=== PATIENT | male | born 1945 | race Caucasian/White ===

== ENCOUNTER 2019-01-07 13:58 | Inpatient (IN) | payer OTHER ==
[2019-01-07] MEDS ORDERED: RSI MEDICATION KIT IV ONE (14:31)
[2019-01-07] MEDS ORDERED: PROPOFOL 1,000 MG/100 ML VIAL IV ONE (14:31)
[2019-01-07] MEDS ORDERED: NA CHLORIDE 0.9% 1,000 ML ONE ×3 (14:32→21:11)
[2019-01-07 14:34] LABS: Protime INR 1.31
[2019-01-07] MEDS ORDERED: D50W 25 GM/50 ML SYRINGE IV ONE (14:35)
[2019-01-07 14:44] LABS: Albumin 2.8 g/dL (3.4-5.0); Bilirubin Direct 0.1 mg/dL (0-0.2); Bilirubin Total 0.3 mg/dL (0.2-1.0); Potassium 4.8 mmol/L (3.5-5.1); Protein, Total 7.1 g/dL (6.4-8.2); Troponin (Emerg Dept Use Only) 0.25 ng/mL (0.0-0.045)
[2019-01-07 14:52] LABS: Absolute Lymphocytes (CBC) 2.1 K/uL (0.7-4.9); Basophils % 0.7 % (0-1.3); Hematocrit 28.9 % (39.6-49.0); Lymphocytes % 11.2 % (15.3-44.8); MPV 8.2 fL (7.6-11.3); RBC Red Blood Cell Count 3.39 M/uL (4.33-5.43)
[2019-01-07 15:03] LABS: Arterial Blood Carboxyhemoglob 1.3 % (0-1.5); Blood Gas Oxyhemoglobin 97.5 % (94-97); Blood O2 Saturation 99.7 % (92-98.5)
[2019-01-07 15:08] LABS: Urine Blood NEGATIVE (NEG); Urine Glucose NEGATIVE (NEG); Urine Protein 2+ (NEG)
[2019-01-07 15:19] LABS: Barbiturates NEGATIVE (NEGATIVE); Benzodiazepines NEGATIVE (NEGATIVE); Cocaine NEGATIVE (NEGATIVE); METHAMPHETAM NEGATIVE (NEGATIVE); Methadone NEGATIVE (NEGATIVE); Opiates NEGATIVE (NEGATIVE); Phencyclidine NEGATIVE (NEGATIVE); THC Cannibis NEGATIVE (NEGATIVE)
--- NOTE | 2019-01-07 15:37 | RAD REPORT ---
EXAM DESCRIPTION: CT - Head Brain Wo Cont - 01/07/2019 3:28 pm CLINICAL HISTORY: Alteration of awareness/confusion COMPARISON: None TECHNIQUE: Computed axial tomography of the head was obtained. IV contrast was not requested. All CT scans are performed using dose optimization technique as appropriate and may include automated exposure control or mA/KV adjustment according to patient size. FINDINGS: An intracranial bleed is not seen . The ventricles are normal in caliber. No extra-axial fluid collection is noted. Small low-density area within the anterior horn right internal capsule has a nonspecific appearance. It may represent an old lacunar infarct. . Fluid within the sinuses/ mastoids is not seen. IMPRESSION: No acute intracranial abnormality is seen. If patient's symptoms persist MRI of the bra in would be recommended.
--- NOTE | 2019-01-07 15:55 | RAD REPORT ---
EXAM DESCRIPTION: CT - Chest Abd Pelvis Wo Con - 01/07/2019 3:28 pm CLINICAL HISTORY: sob COMPARISON: none TECHNIQUE: Computed axial tomography of the chest, abdomen and pelvis was obtained. Oral contrast wa s given. IV contrast was not requested. All CT scans are performed using dose optimization technique as appropriate and may include automated exposure control or mA/KV adjustment according to patient size. FINDINGS: The evaluation of mediastinum, genie, vessels and solid organs is limited secondary to the lack of IV contrast administration Small to moderate left pleural effusion with left lower lobe opacity. The mild right lower lobe atelectasis. Probable small to moderate pericardial effusion with increased density The liver, spleen, pancreas, and adrenals appear grossly normal. Bilateral renal cysts. Largest exten ds off of the right kidney measuring 6.4 centimeters Increased density within the gallbladder A Kaur catheter is present within the bladder. Large amount stool within the colon. Prostate gland moderately enlarged. Diffuse edema within the subcutaneous tissues. Small umbilical hernia Vascular calcifications. Tracheal tube in place. Nasogastric tube within the stomach. The tip abuts the anterior wall Spondylosis involves lumbar spine resulting in spinal stenosis IMPRESSION: Left lower lobe opacity may represent atelectasis, pneumonia or a combination of mass an d atelectasis/ pneumonia. Probable small to moderate pericardial effusion with increased density. Ultrasound of the heart is re commended Increased density within the gallbladder may represent stones or milk of calcium bile. Large amount stool within the colon
[2019-01-07] MEDS ORDERED: CEFTRIAXONE/SWI 1gm 1 GM/10 ML SYR ONE ×2 (16:38→16:59)
[2019-01-07] MEDS ORDERED: ASPIRIN 600 MG/SUPP PR ONE (16:38)
[2019-01-07] MEDS ORDERED: ENOXAPARIN 80 MG/0.8 ML SQ ONE (16:38)
[2019-01-07 16:41] LABS: Urine Bacteria >50 /HPF (NONE SEEN); Urine Culture Reflex Order REFLEXED; Urine RBC <5 /HPF (NONE SEEN)
--- NOTE | 2019-01-07 16:45 | RAD REPORT ---
EXAM DESCRIPTION: [place] Single View01/07/2019 2:57 pm CLINICAL HISTORY: sob COMPARISON: none FINDINGS: Pacemaker leads in place Small to moderate left pleural effusion with left basilar opacity. Mild right basilar atelectasis. The heart is enlarged
--- NOTE | 2019-01-07 17:15 | ER ---
Nurse's Notes [facility] Name: David Bernard Age: 73 yrs Sex: Male : 1945 Arrival Date: 01/07/2019 Time: 13:59 Bed 4 Private MD: Diagnosis: acute AMS;NSTEMI;acute Left lower lobe pneumonia with effusion;pericadial effusion;leukocytosis;renal insufficiency Presentation: 01/07 13:59 Presenting complaint: EMS states: From [facility], staff reports that pt was at ph baseline at 0800 this morning, began having SOB after that time, at approx 1100 began having tremors, AMS, and Spo2 decreased to 84% on 4L NC, placed on NRB mask by EMS and improved to > 95%, BP 124/77, BGL 77, pt normally A\T\O x 3, breath sounds diminished bilaterally. Transition of care: patient was not received from another setting of care. Onset of symptoms was January 07, 2019. Risk Assessment: Do you want to hurt yourself or someone else? Patient reports no desire to harm self or others. Initial Sepsis Screen: Does the patient meet any 2 criteria? Altered Mental Status. Does the patient have a suspected source of infection? Yes: Productive cough/pneumonia. Care prior to arrival: None. 13:59 Method Of Arrival: EMS: [facility] ph 13:59 Acuity: FANTA 2 ph 15:10 Acuity: FANTA 1 ph Triage Assessment: 19:46 Respiratory: ak1 Historical: - Allergies: 14:08 Doxycycline; ph 14:08 Zofran; ph - Home Meds: 19:06 levothyroxine 150 mcg tab 1 tab once daily [Active]; temazepam 15 mg Oral cap 1 cap ph once daily [Active]; atorvastatin 80 mg oral tab 1 tab once daily [Active]; Rozerem 8 mg oral tab 1 tab once daily [Active]; trazodone 50 mg Oral tab 1 tab nightly [Active]; Insulin: Humulin 70/30 Sub-Q [Active]; pregabalin 300 mg Oral 2 times per day [Active]; metoprolol succinate 25 mg oral Tb24 0.5 tab [Active]; Victoza 2-Skyler 0.6 mg/0.1 mL (18 mg/3 mL) subcutaneous pnij 1.8 mg [Active]; pantoprazole 40 mg oral TbEC 1 tab 2 times per day [Active]; Miralax 17 gram/dose Oral powd once daily [Active]; aspirin 81 mg Oral chew 1 tab once daily [Active]; acarbose 25 mg Oral tab 1 tab 3 times per day [Active]; bumetanide 2 mg Oral tab 1 tab 2 times per day [Active]; tamsulosin 0.4 mg oral cp24 1 cap once daily [Active]; fluticasone 50 mcg/actuation nasal spsn 2 sprays once daily [Active]; sennosides 8.6 mg oral tab 1 tabs once daily [Active]; Cholestyramine Light 4 gram oral pwpk 1 packet 3 times per day [Active]; metformin 500 mg Oral tab 2 tabs 2 times per day [Active]; Nitrostat 0.4 mg SL subl 1 tab every 5 minutes [Active]; tramadol 50 mg Oral tab 2 tabs every 4-6 hours [Active]; ipratropium-albuterol 0.5 mg-3 mg(2.5 mg base)/3 mL Inhl nebu [Active]; Albuterol Inhl [Active]; acetaminophen 325 mg Oral tab 2 tabs every 6 hours [Active]; - PMHx: 14:08 Myocardial infarction; ph 14:13 CAD; Gout; Hypertension; Hyperlipidemia; neuropathy; Lyme Disease; Arthritis; ph Cataracts; Diabetes - NIDDM; Hypothyroidism; GI Bleed; insomnia; sepsis; - Immunization history:: Adult Immunizations unknown. - Social history:: Smoking status: unknown. - Ebola Screening: : No symptoms or risks identified at this time. - Family history:: not pertinent. - Hospitalizations: : No recent hospitalization is reported. Screenin:42 Abuse screen: Denies threats or abuse. Denies injuries from another. Nutritional ph screening: No deficits noted. Tuberculosis screening: No symptoms or risk factors identified. Fall Risk None identified. Assessment: 14:10 General: Appears in no apparent distress. uncomfortable, Behavior is cooperative, ph drowsy, listless, quiet. Pain: Denies pain. Neuro: Level of Consciousness is obeys commands, lethargic, listless, Oriented to person, place. Neuro: intermittent tremors noted to lakeisha arms. Cardiovascular: Capillary refill is sluggish in bilateral fingers Patient's skin is warm and dry. Rhythm is irregular. Respiratory: Airway is patent Respiratory effort is gasping, shallow, Respiratory pattern is regular, Breath sounds are diminished bilaterally. Derm: Skin is fragile, is thin, Skin is pale. Musculoskeletal: Circulation, motion, and sensation intact. 14:35 Reassessment: LOC noted to have decreased, GCS of 6 w/ no response to verbal or tactile ph stimuli, shallow and tachypneic respirations, ERP at bedside, preparing to intubate pt. 15:56 Reassessment: Patient appears in no apparent distress at this time. Patient and/or ph family updated on plan of care and expected duration. Pain level reassessed. Pt remains sedated and intubated, VSS at this time, awaiting CT results. 16:30 Reassessment: Patient appears in no apparent distress at this time. Patient and/or ph family updated on plan of care and expected duration. Pain level reassessed. BP remains low, see vitals tab, ERP aware of BP and elevated lactate, no fluid bolus ordered at this time. 17:16 Reassessment: Patient appears in no apparent distress at this time. Pt remains ph intubated/sedated, awaiting bed assignment. 18:16 Reassessment: Patient appears in no apparent distress at this time. No changes from ph previously documented assessment. 19:28 General: Appears in no apparent distress. comfortable, Behavior is calm. Neuro: pt is ak1 intubated and sedated at this time. . Cardiovascular: Patient's skin is warm and dry. Rhythm is with capture. Respiratory: Airway is patent via oral intubation Respiratory effort is assisted via vent Breath sounds are diminished in left lower lobe Breath sounds with rhonchi in right upper lobe, left upper lobe, right middle lobe and right lower lobe. GI: Abdomen is non-distended, Bowel sounds present X 4 quads. : Kaur in place. EENT: Nares NG tube to left nare. Derm: Skin is fragile, is thin, Skin is dry, Skin is pale, Skin temperature is warm. Musculoskeletal: Capillary refill < 3 seconds, in bilateral fingers. pt currently in wrist restraints from previous shift. . 21:27 Reassessment: esophageal temp probe placed to right nares. propofol increased to ak1 8mcg/min for pt sedation. Vital Signs: 14:05 BP 210 / 112; Pulse 84; Resp 20; Temp 98.5; Pulse Ox 79% on R/A; Weight 83.91 kg; ph 14:25 BP 150 / 54; Pulse 96; Resp 22; Pulse Ox 97% on 100% Non-rebreather mask; ph 14:45 BP 108 / 86; Pulse 111; Resp 16; Pulse Ox 100% on 15 lpm ETT ambu; ph 15:00 BP 108 / 63; Pulse 116; Resp 20; Pulse Ox 91% on 15 lpm ETT ambu; ph 15:15 BP 107 / 60; Pulse 110; Resp 20; Pulse Ox 95% on 15 lpm ETT ambu; ph 15:30 BP 104 / 60; Pulse 107; Resp 16; Pulse Ox 100% on 55% FiO2 ETT vent; ph 15:50 BP 86 / 66; Pulse 87; Resp 16; Pulse Ox 98% on 55% FiO2 ETT vent; ph 16:06 BP 82 / 60; Pulse 89; Resp 16; Pulse Ox 100% on ETT vent; ph 16:20 BP 90 / 59; Pulse 107; Resp 18; Pulse Ox 99% on ETT vent; ph 16:45 BP 94 / 64; Pulse 90; Resp 18; Pulse Ox 95% on ETT vent; ph 17:00 BP 79 / 66; Pulse 85; Resp 18; Pulse Ox 98% on ETT vent; ph 17:15 BP 89 / 65; Pulse 97; Resp 18; Pulse Ox 99% on ETT vent; ph 17:30 BP 99 / 71; Pulse 99; Resp 18; Pulse Ox 100% on ETT vent; ph 17:45 BP 85 / 64; Pulse 96; Resp 16; Pulse Ox 100% on ETT vent; ph 18:00 BP 105 / 70; Pulse 110; Resp 18; Pulse Ox 100% on ETT vent; ph 18:16 BP 100 / 87; Pulse 101; Resp 18; Pulse Ox 99% on ETT vent; ph 19:00 BP 82 / 68; Pulse 80; Resp 18; Pulse Ox 100% on 55% FiO2 ETT vent; ak1 19:30 BP 111 / 60; Pulse 98; Resp 18; Pulse Ox 97% on 55% FiO2 ETT vent; ak1 20:05 BP 92 / 67; Pulse 88; Resp 19; Temp 100.2(A); Pulse Ox 91% on 60% FiO2 ETT vent; ak1 21:20 BP 102 / 77; Pulse 82; Resp 18; Temp 100.2(esophageal probe); Pulse Ox 98% on 60% FiO2 ak1 ETT vent; 22:00 BP 95 / 62; Pulse 95; Resp 16; Temp 100.1(esophagel probe); Pulse Ox 98% on 60% FiO2 ak1 ETT vent; 19:00 Charge nurse and provider notifed of vitals signs, central line ordered and being ak1 placed by provider. 20:05 current vent settings of : 550 TV, AC 18, FiO2 60%, PEEP 5 ak1 22:00 99.8 rectal temp. ak1 Simin Coma Score: 14:05 Eye Response: to voice(3). Verbal Response: oriented(5). Motor Response: withdraws from ph pain(4). Total: 12. 14:38 Eye Response: none(1). Verbal Response: none(1). Motor Response: withdraws from ph pain(4). Total: 6. ED Course: 13:59 Patient arrived in ED. ph 14:02 Andrea Vivas MD is Attending Physician. wa 14:04 Triage completed. ph 14:14 Arm band placed on Patient placed in an exam room, on a stretcher, on oxygen, on ph groundwater monitoring technician, on pulse oximetry. 14:22 EKG done, by ED staff, reviewed by Andrea Vivas MD. Missed attempt(s): 20 gauge in mh5 left antecubital area. 14:26 Lesli Bianchi, RN is Primary Nurse. ph 14:30 Inserted saline lock: 22 gauge in right hand, using aseptic technique. ph 14:35 Patient has correct armband on for positive identification. Placed in gown. Bed in low ph position. Side rails up X2. monitoring and evaluation advisor on. Pulse ox on. NIBP on. Door closed. Noise minimized. Warm blanket given. 14:43 Assisted provider with intubation using 7.5 mm ETT via oral route. ET tube secured at ph 22cm at the teeth. Set up intubation tray. Intubated by Andrea Vivas MD Placement verified by CO2 detector w/ + color change, auscultating bilateral breath sounds, Patient tolerated well. 14:45 Inserted saline lock: 20 gauge in left EJ, using aseptic technique. inserted by Dr ramsey Vivas. 14:50 Kaur cath inserted, using sterile technique, 16 Fr., by me, balloon inflated, urine iw specimen collected. returned clear yellow urine. 14:50 NGT: inserted 16 Fr. via left nare. verified placement of air over stomach, verified ph return of gastric contents, to intermittent suction. Returned gastric contents. Patient tolerated well. 15:01 Chest Single View XRAY In Process Unspecified. EDMS 15:29 CT Head Brain wo Cont In Process Unspecified. EDMS 15:29 CT Chest Abdomen Pelvis W/O Contrast In Process Unspecified. EDMS 16:50 Chest Single View XRAY In Process Unspecified. EDMS 17:12 Breanna Hong MD is Hospitalizing Provider. wa 19:46 Patient admitted, IV remains in place. ak1 20:01 Assisted provider with central line placement. Set up central line tray. Triple lumen la1 line placed in right femoral. Line placed by Andrea Vivas MD Placement verified by blood return, Dressed with Tegaderm, Patient tolerated well. Time-out/Briefing performed prior to start of procedure? Yes. Was handwashing/sanitizing done immediately prior to procedure? Yes. Was patient positioned to in a way to prevent air embolism? Yes. Was procedure site sterilized? Yes, with chlorhexidine. Was the site allowed to dry? Yes. Was local anesthetic and/or sedation utilized? Yes. During the procedure, did the Practitioner(s) maintain a sterile field? Yes. Were unused ports clamped during insertion? Yes. Was a 2nd qualified MD obtained after 3 unsuccessful insertion attempts? No. Was blood aspirated from each lumen? Yes. After the procedure, did the Practitioner(s) clean the site and apply a sterile dressing? Yes. Administered Medications: 14:40 Drug: Etomidate 20 mg Route: IVP; Site: right hand; ph 16:06 Follow up: Response: No adverse reaction; Patient is sedated; RASS: Deep sedation (-4) ph 14:50 Drug: Propofol 5 mcg/kg/min Route: IV; Rate: calculated rate; Site: left jugular; ph 19:08 Follow up: Response: No adverse reaction; IV Status: Infusion continued upon admission ph 22:02 Follow up: IV Status: Infusion continued upon admission ak1 15:09 Drug: D50W 50 ml Route: IVP; Site: right hand; ph 16:06 Follow up: Response: No adverse reaction ph 16:07 Drug: NS 0.9% 1000 ml Route: IV; Rate: 60 ml/hr; Site: left jugular; ph 19:08 Follow up: Response: No adverse reaction; IV Status: Infusion continued upon admission ph 17:14 Drug: Aspirin Suppository 300 mg Route: NJ; ph 19:07 Follow up: Response: No adverse reaction ph 17:14 Drug: Lovenox 80 mg Route: Sub-Q; Site: right lower abdomen; ph 19:07 Follow up: Response: No adverse reaction ph 17:14 Drug: Rocephin - (cefTRIAXone) 2 grams Route: IVPB; Infused Over: 30 mins; Site: right ph hand; 19:07 Follow up: Response: No adverse reaction; IV Status: Completed infusion ph 18:04 Drug: Zithromax 500 mg Route: IVPB; Infused Over: 1 hrs; Site: right antecubital; ph 19:07 Follow up: Response: No adverse reaction; IV Status: Completed infusion ph 18:40 Drug: fentaNYL (PF) 50 mcg Route: IVP; Site: left jugular; ph 19:08 Follow up: Response: No adverse reaction ph 18:40 Drug: NS 0.9% 500 ml Route: IV; Rate: bolus; Site: left jugular; ph 19:08 Follow up: IV Status: Completed infusion; IV Intake: 500ml lp1 20:05 Drug: NS 0.9% 1500 ml Route: IV; Rate: bolus; Site: right femoral; ak1 21:30 Follow up: IV Status: Completed infusion; IV Intake: 1500ml ak1 20:16 Drug: Tylenol Suppository 650 mg Route: NJ; ak1 21:31 Follow up: Response: No adverse reaction ak1 21:31 Drug: NS 0.9% 1000 ml Route: IV; Rate: 100 ml/hr; Site: right femoral; ak1 21:32 Follow up: IV Status: Infusion continued upon admission ak1 Point of Care Testing: Blood Glucose: 14:27 Blood Glucose: 73 mg/dL; ph 16:20 Blood Glucose: 102 mg/dL; ph Ranges: Intake: 19:08 IV: 500ml; Total: 500ml. lp1 21:30 IV: 1500ml; Total: 2000ml. ak1 Output: 22:21 Urine: 250ml (Kaur); Total: 250ml. lp1 Outcome: 17:13 Decision to Hospitalize by Provider. wa 19:46 critical ak1 19:46 Instructed on the need for admit. 22:23 Patient left the ED. lp1 22:51 Admitted to ICU accompanied by nurse, via stretcher, room ICU-1, with oxygen, on ak1 monitor, with chart, Report called to Bedside report given to Elana GARCIA Signatures: Dispatcher [employer] EDMS Nay Garsia RN RN Linda Sands RN RN 1 Toñito Gandara RN RN la1 Krenek, Amber, RN RN ak1 Lesli Bianchi RN RN Dmitry, [facility] Andrea Vivas MD MD wa Corrections: (The following items were deleted from the chart) 19:19 16:30 Reassessment: Patient appears in no apparent distress at this time. Patient ph and/or family updated on plan of care and expected duration. Pain level reassessed. BP remains low, see vitals tab, ERP aware of BP, no fluid bolus ordered at this time ph 22:00 21:27 Reassessment: esophageal temp probe placed to right nares. propofol increased to ak1 8mg/min for pt sedation. ak1
--- NOTE | 2019-01-07 17:16 | EDPHYS ---
Physician Documentation [facility] Name: David Bernard Age: 73 yrs Sex: Male : 1945 Arrival Date: 01/07/2019 Time: 13:59 Bed 4 Private MD: ED Physician Andrea Vivas HPI: 01/07 16:21 This 73 yrs old Male presents to ER via EMS with complaints of Respiratory wa Distress. 16:21 The patient presents with decreased mental status, trouble breathing. . Onset: The wa symptoms/episode began/occurred just prior to arrival. Possible causes: unknown. Associated signs and symptoms: Pertinent positives: decreased oxygen saturation. Current symptoms: In the emergency department the patient's symptoms have worsened, markedly. Patient's baseline: Neuro: alert and fully oriented, Speech: normal. It is unknown whether or not the patient has had similar symptoms in the past. The patient has not recently seen a physician. per NH, pt had a flu shot around 9 AM. became less responsive and confused about an hour later. per EMS, noted decreased sats. pt unable to answer MD questions at arrival. BG 71. . Historical: - Allergies: 14:08 Doxycycline; ph 14:08 Zofran; ph - Home Meds: 19:06 levothyroxine 150 mcg tab 1 tab once daily [Active]; temazepam 15 mg Oral cap 1 cap ph once daily [Active]; atorvastatin 80 mg oral tab 1 tab once daily [Active]; Rozerem 8 mg oral tab 1 tab once daily [Active]; trazodone 50 mg Oral tab 1 tab nightly [Active]; Insulin: Humulin 70/30 Sub-Q [Active]; pregabalin 300 mg Oral 2 times per day [Active]; metoprolol succinate 25 mg oral Tb24 0.5 tab [Active]; Victoza 2-Skyler 0.6 mg/0.1 mL (18 mg/3 mL) subcutaneous pnij 1.8 mg [Active]; pantoprazole 40 mg oral TbEC 1 tab 2 times per day [Active]; Miralax 17 gram/dose Oral powd once daily [Active]; aspirin 81 mg Oral chew 1 tab once daily [Active]; acarbose 25 mg Oral tab 1 tab 3 times per day [Active]; bumetanide 2 mg Oral tab 1 tab 2 times per day [Active]; tamsulosin 0.4 mg oral cp24 1 cap once daily [Active]; fluticasone 50 mcg/actuation nasal spsn 2 sprays once daily [Active]; sennosides 8.6 mg oral tab 1 tabs once daily [Active]; Cholestyramine Light 4 gram oral pwpk 1 packet 3 times per day [Active]; metformin 500 mg Oral tab 2 tabs 2 times per day [Active]; Nitrostat 0.4 mg SL subl 1 tab every 5 minutes [Active]; tramadol 50 mg Oral tab 2 tabs every 4-6 hours [Active]; ipratropium-albuterol 0.5 mg-3 mg(2.5 mg base)/3 mL Inhl nebu [Active]; Albuterol Inhl [Active]; acetaminophen 325 mg Oral tab 2 tabs every 6 hours [Active]; - PMHx: 14:08 Myocardial infarction; ph 14:13 CAD; Gout; Hypertension; Hyperlipidemia; neuropathy; Lyme Disease; Arthritis; ph Cataracts; Diabetes - NIDDM; Hypothyroidism; GI Bleed; insomnia; sepsis; - Immunization history:: Adult Immunizations unknown. - Social history:: Smoking status: unknown. - Ebola Screening: : No symptoms or risks identified at this time. - Family history:: not pertinent. - Hospitalizations: : No recent hospitalization is reported. ROS: 16:24 Constitutional: Negative for fever, chills, and weight loss, Eyes: Negative for injury, wa pain, redness, and discharge, ENT: Negative for injury, pain, and discharge, Neck: Negative for injury, pain, and swelling, Abdomen/GI: Negative for abdominal pain, nausea, vomiting, diarrhea, and constipation, Back: Negative for injury and pain, : Negative for injury, bleeding, discharge, and swelling, MS/Extremity: Negative for injury and deformity, Skin: Negative for injury, rash, and discoloration. 16:24 Cardiovascular: Negative for chest pain, edema. 16:24 Respiratory: Positive for shortness of breath. 16:24 Neuro: Positive for altered mental status. Exam: 16:25 Head/Face: Normocephalic, atraumatic. Eyes: Pupils equal round and reactive to light, wa extra-ocular motions intact. Lids and lashes normal. Conjunctiva and sclera are non-icteric and not injected. Cornea within normal limits. Periorbital areas with no swelling, redness, or edema. ENT: Nares patent. No nasal discharge, no septal abnormalities noted. Tympanic membranes are normal and external auditory canals are clear. Oropharynx with no redness, swelling, or masses, exudates, or evidence of obstruction, uvula midline. Mucous membranes moist. Neck: Trachea midline, no thyromegaly or masses palpated, and no cervical lymphadenopathy. Supple, full range of motion without nuchal rigidity, or vertebral point tenderness. No Meningismus. Respiratory: Lungs have equal breath sounds bilaterally, clear to auscultation and percussion. No rales, rhonchi or wheezes noted. No increased work of breathing, no retractions or nasal flaring. Abdomen/GI: Soft, non-tender, with normal bowel sounds. No distension or tympany. No guarding or rebound. No evidence of tenderness throughout. Back: No spinal tenderness. No costovertebral tenderness. Full range of motion. Skin: Warm, dry with normal turgor. Normal color with no rashes, no lesions, and no evidence of cellulitis. MS/ Extremity: Pulses equal, no cyanosis. Neurovascular intact. Full, normal range of motion. 16:25 Constitutional: The patient appears no obvious distress. somnolent. 16:25 Neuro: Orientation: mumbles ansers to MD initially, however worsened rapidly to decreased responsiveness, Cranial nerves: unable to test, Motor: moves all 4 extremities. Vital Signs: 14:05 BP 210 / 112; Pulse 84; Resp 20; Temp 98.5; Pulse Ox 79% on R/A; Weight 83.91 kg; ph 14:25 BP 150 / 54; Pulse 96; Resp 22; Pulse Ox 97% on 100% Non-rebreather mask; ph 14:45 BP 108 / 86; Pulse 111; Resp 16; Pulse Ox 100% on 15 lpm ETT ambu; ph 15:00 BP 108 / 63; Pulse 116; Resp 20; Pulse Ox 91% on 15 lpm ETT ambu; ph 15:15 BP 107 / 60; Pulse 110; Resp 20; Pulse Ox 95% on 15 lpm ETT ambu; ph 15:30 BP 104 / 60; Pulse 107; Resp 16; Pulse Ox 100% on 55% FiO2 ETT vent; ph 15:50 BP 86 / 66; Pulse 87; Resp 16; Pulse Ox 98% on 55% FiO2 ETT vent; ph 16:06 BP 82 / 60; Pulse 89; Resp 16; Pulse Ox 100% on ETT vent; ph 16:20 BP 90 / 59; Pulse 107; Resp 18; Pulse Ox 99% on ETT vent; ph 16:45 BP 94 / 64; Pulse 90; Resp 18; Pulse Ox 95% on ETT vent; ph 17:00 BP 79 / 66; Pulse 85; Resp 18; Pulse Ox 98% on ETT vent; ph 17:15 BP 89 / 65; Pulse 97; Resp 18; Pulse Ox 99% on ETT vent; ph 17:30 BP 99 / 71; Pulse 99; Resp 18; Pulse Ox 100% on ETT vent; ph 17:45 BP 85 / 64; Pulse 96; Resp 16; Pulse Ox 100% on ETT vent; ph 18:00 BP 105 / 70; Pulse 110; Resp 18; Pulse Ox 100% on ETT vent; ph 18:16 BP 100 / 87; Pulse 101; Resp 18; Pulse Ox 99% on ETT vent; ph 19:00 BP 82 / 68; Pulse 80; Resp 18; Pulse Ox 100% on 55% FiO2 ETT vent; ak1 19:30 BP 111 / 60; Pulse 98; Resp 18; Pulse Ox 97% on 55% FiO2 ETT vent; ak1 20:05 BP 92 / 67; Pulse 88; Resp 19; Temp 100.2(A); Pulse Ox 91% on 60% FiO2 ETT vent; ak1 21:20 BP 102 / 77; Pulse 82; Resp 18; Temp 100.2(esophageal probe); Pulse Ox 98% on 60% FiO2 ak1 ETT vent; 22:00 BP 95 / 62; Pulse 95; Resp 16; Temp 100.1(esophagel probe); Pulse Ox 98% on 60% FiO2 ak1 ETT vent; 19:00 Charge nurse and provider notifed of vitals signs, central line ordered and being ak1 placed by provider. 20:05 current vent settings of : 550 TV, AC 18, FiO2 60%, PEEP 5 ak1 22:00 99.8 rectal temp. ak1 Simin Coma Score: 14:05 Eye Response: to voice(3). Verbal Response: oriented(5). Motor Response: withdraws from ph pain(4). Total: 12. 14:38 Eye Response: none(1). Verbal Response: none(1). Motor Response: withdraws from ph pain(4). Total: 6. Procedures: 16:53 Intubation: Ventilated with 100% NRB prior to procedure. O2 saturation prior to wa procedure was 100 %. Intubated orally using # 3 Richelle blade with 7.5 mm ETT. was successful on first attempt. Ventilated with Ambu bag. ventilator. Tube secured with tape with ETT hernandez at left side of mouth Placement verified by CXR, CO2 detector with (+) color change, auscultating bilateral breath sounds, Patient tolerated well. 20:24 Central Line: the site was prepped with in sterile fashion, a triple lumen catheter was wa inserted, in the right femoral vein, in 1 attempts. placement was verified, by blood return, the site was dressed with 4X4s, Tegaderm, using sterile technique, the patient tolerated the procedure, well. MDM: 14:02 Patient medically screened. ak 16:27 Differential Diagnosis: CVA, electrolyte abnormality, intracranial bleed, overdose, wa pneumonia, seizure, sepsis, TIA, UTI, volume depletion. Data reviewed: vital signs, nurses notes. 16:41 Test interpretation: by ED physician or midlevel provider: EKG: Noted . ak 16:42 Test interpretation: by ED physician or midlevel provider: EKG: interp by me. HR 111. wa tachycardic. noted ventricular pacer in a LBBB pattern. ABG noted for hypercarbia 7.28/73.6/237/33.1. Elevated Troponin 0.25. noted leukocytosis at 18.5. anemia at 9.3/28.9. lactate 2.1. noted decreased GFR with BUN 67 Cr. 1.[address] brain no acute process. CT chest/abd/pelvis: small to moderate L pleural effusion with LLL opacity. small to moderate pericardial effusion. Response to treatment: the patient's symptoms have mildly improved after treatment. Admission orders: after a detailed discussion of the patient's condition and case, the admit orders are written by me. 01/07 14:10 Order name: Urine Culture ak 01/07 14:10 Order name: Basic Metabolic Panel; Complete Time: 16:11 ak 01/07 14:10 Order name: Blood Culture Adult (2) ak 01/07 14:10 Order name: CBC with Diff; Complete Time: 16:12 ak 01/07 14:10 Order name: CPK; Complete Time: 16:12 ak 01/07 14:10 Order name: Lactate; Complete Time: 16:12 ak 01/07 14:10 Order name: LFT's; Complete Time: 16:12 ak 01/07 14:10 Order name: Lipase; Complete Time: 16:12 ak 01/07 14:10 Order name: Procalcitonin; Complete Time: 16:12 ak 01/07 14:10 Order name: Protime (+inr); Complete Time: 16:12 ak 01/07 14:10 Order name: Ptt, Activated; Complete Time: 16:12 ak 01/07 14:10 Order name: Troponin (emerg Dept Use Only); Complete Time: 16:12 ak 01/07 14:10 Order name: Urine Microscopic Only ak 01/07 14:10 Order name: ABG; Complete Time: 16:12 ak 01/07 14:10 Order name: Chest Single View XRAY ak 01/07 14:11 Order name: CT Head Brain wo Cont; Complete Time: 16:12 ak 01/07 14:11 Order name: CT Chest Abdomen Pelvis W/O Contrast; Complete Time: 16:30 ak 01/07 14:14 Order name: UDS; Complete Time: 16:12 ak 01/07 15:00 Order name: Urine Dipstick--Ancillary (enter results); Complete Time: 16:11 01/07 16:30 Order name: Chest Single View XRAY ak 01/07 16:33 Order name: Echo w/ Doppler ak 01/07 18:30 Order name: Lactate Sepsis 2 HR Follow-up [facility] 01/07 14:10 Order name: Cath; Complete Time: 15:09 ak 01/07 14:10 Order name: Accucheck; Complete Time: 14:27 ak 01/07 14:10 Order name: Cardiac monitoring; Complete Time: 14:27 ak 01/07 14:10 Order name: EKG - Nurse/Tech; Complete Time: 15:57 ak 01/07 14:10 Order name: IV Saline Lock - Large Bore; Complete Time: 14:27 ak 01/07 14:10 Order name: Labs collected and sent; Complete Time: 14:27 ak 17 14:10 Order name: O2 Per Protocol; Complete Time: 01/07 14:10 Order name: O2 Sat Monitoring; Complete Time: 01/07 14:10 Order name: Urine Dipstick-Ancillary (obtain specimen); Complete Time: 15: ak Administered Medications: 14:40 Drug: Etomidate 20 mg Route: IVP; Site: right hand; ph 16:06 Follow up: Response: No adverse reaction; Patient is sedated; RASS: Deep sedation (-4) ph 14:50 Drug: Propofol 5 mcg/kg/min Route: IV; Rate: calculated rate; Site: left jugular; ph 19:08 Follow up: Response: No adverse reaction; IV Status: Infusion continued upon admission ph 22:02 Follow up: IV Status: Infusion continued upon admission ak1 15:09 Drug: D50W 50 ml Route: IVP; Site: right hand; ph 16:06 Follow up: Response: No adverse reaction ph 16:07 Drug: NS 0.9% 1000 ml Route: IV; Rate: 60 ml/hr; Site: left jugular; ph 19:08 Follow up: Response: No adverse reaction; IV Status: Infusion continued upon admission ph 17:14 Drug: Aspirin Suppository 300 mg Route: UT; ph 19:07 Follow up: Response: No adverse reaction ph 17:14 Drug: Lovenox 80 mg Route: Sub-Q; Site: right lower abdomen; ph 19:07 Follow up: Response: No adverse reaction ph 17:14 Drug: Rocephin - (cefTRIAXone) 2 grams Route: IVPB; Infused Over: 30 mins; Site: right ph hand; 19:07 Follow up: Response: No adverse reaction; IV Status: Completed infusion ph 18:04 Drug: Zithromax 500 mg Route: IVPB; Infused Over: 1 hrs; Site: right antecubital; ph 19:07 Follow up: Response: No adverse reaction; IV Status: Completed infusion ph 18:40 Drug: fentaNYL (PF) 50 mcg Route: IVP; Site: left jugular; ph 19:08 Follow up: Response: No adverse reaction ph 18:40 Drug: NS 0.9% 500 ml Route: IV; Rate: bolus; Site: left jugular; ph 19:08 Follow up: IV Status: Completed infusion; IV Intake: 500ml lp1 20:05 Drug: NS 0.9% 1500 ml Route: IV; Rate: bolus; Site: right femoral; ak1 21:30 Follow up: IV Status: Completed infusion; IV Intake: 1500ml ak1 20:16 Drug: Tylenol Suppository 650 mg Route: UT; ak1 21:31 Follow up: Response: No adverse reaction ak1 21:31 Drug: NS 0.9% 1000 ml Route: IV; Rate: 100 ml/hr; Site: right femoral; ak1 21:32 Follow up: IV Status: Infusion continued upon admission ak1 Point of Care Testing: Blood Glucose: 14:27 Blood Glucose: 73 mg/dL; ph 16:20 Blood Glucose: 102 mg/dL; ph Ranges: Critical Glucose Levels:Adult <50 mg/dl or >400 mg/dl <40 mg/dl or >180 mg/dl Disposition: 17:14 Critical Care:. ak Disposition: 01/07/19 17:13 Hospitalization ordered by Breanna Hong for Inpatient Admission. Preliminary diagnosis are acute AMS, NSTEMI, acute Left lower lobe pneumonia with effusion, pericadial effusion, leukocytosis, renal insufficiency. - Bed requested for Intensive Care Unit. - Status is Inpatient Admission. lp1 - Condition is Critical. - Problem is new. - Symptoms have improved. UTI on Admission? No Critical care time excluding procedures: 17:14 Critical care time: Bedside Care: 15 minutes, Consultation: 10 minutes, Family wa Intervention: 5 minutes. Total time: 30 minutes Signatures: Dispatcher [employer] EDMS Linda Sands RN RN 1 Toñito Gandara RN RN la1 Krenek, Amber, RN RN ak1 Hall, Patricia, RN RN Andrea Vivas MD MD ak Corrections: (The following items were deleted from the chart) 21:55 17:13 Hospitalization Ordered by Breanna Hong MD for Inpatient Admission. Preliminary la1 diagnosis is acute AMS; NSTEMI; acute Left lower lobe pneumonia with effusion; pericadial effusion; leukocytosis; renal insufficiency. Bed requested for Intensive Care Unit. Status is Inpatient Admission. Condition is Critical. Problem is new. Symptoms have improved. UTI on Admission? No. ak 22:23 21:55 01/07/2019 17:13 Hospitalization Ordered by Breanna Hong MD for Inpatient lp1 Admission. Preliminary diagnosis is acute AMS; NSTEMI; acute Left lower lobe pneumonia with effusion; pericadial effusion; leukocytosis; renal insufficiency. Bed requested for Intensive Care Unit. Status is Inpatient Admission. Condition is Critical. Problem is new. Symptoms have improved. UTI on Admission? No. la1
[2019-01-07] MEDS ORDERED: FAMOTIDINE 20 MG/2 ML VIAL IV ONE (17:30)
[2019-01-07] MEDS ORDERED: AZITHROMYCIN IV 500 MG in NA CHLORIDE 0.9% 250 ML IVPB ONE (18:00)
[2019-01-07] MEDS ORDERED: FENTANYL CITR 100 MCG/2 ML ONE (18:38)
[2019-01-07 18:39] LABS: Urine Amorphous Sediment 1+ /HPF (NONE SEEN)
--- NOTE | 2019-01-07 19:17 | RAD REPORT ---
EXAM DESCRIPTION: Paola Single View01/07/2019 4:46 pm CLINICAL HISTORY: Device placement endotracheal tube placement IMPRESSION: An endotracheal tube has been inserted with its tip well above the lino.
[2019-01-07] MEDS ORDERED: ACETAMINOPHEN 650MG/RECT SUPP PR ONE (20:11)
[2019-01-07] MEDS ORDERED: MIDAZOLAM HCL 2 MG/2 ML INJ IV PRN (23:17)
[2019-01-07] MEDS ORDERED: LORazepam 2 MG/ML VIAL IV PRN (23:17)
[2019-01-07] MEDS: CARVEDILOL 6.25 MG TAB PO SCH (23:17)
[2019-01-07] MEDS ORDERED: CEFTRIAXONE 1 GM/NS 50 ML 1 GM/50 ML BAG IV SCH (23:17)
[2019-01-07] MEDS ORDERED: PROPOFOL 1,000 MG/100 ML VIAL IV PRN (23:17)
[2019-01-07] MEDS ORDERED: ENOXAPARIN 100 MG/ML SYR SQ SCH (23:17)
[2019-01-07] MEDS ORDERED: HALOPERIDOL LACT 5 MG/ML INJ IV PRN (23:17)
[2019-01-07] MEDS ORDERED: NA CHLORIDE 0.9% 250 ML IV PRN (23:17)
[2019-01-08] MEDS: D5 0.45 NS 1,000 ML IV SCH ×2 (00:14→12:37)
[2019-01-08] MEDS: FAMOTIDINE 20 MG/2 ML VIAL IV SCH ×2 (00:15→09:35)
--- NOTE | 2019-01-08 03:33 | HP ---
Date of Admission: 01/07/2019 Code Status: Full. Chief Complaint: Altered mental status, pneumonia. History Of Present Illness: Patient is a 73-year-old male with past medical history of gout, hypertension, hyperlipidemia, neuropathy, arthritis, diabetes, hypothyroidism, history of insomnia, who was in his usual state of health, resident of detention, who was found to have altered mental status, became somewhat hypoxic in the 70s and saturating in the 70s. He was brought in by the ER to the hospital. Patient became more lethargic and somnolent and required intubation. It should be noted that the patient did receive a flu shot at 9 a.m. today. Patient's symptoms were constant, moderate, progressively worsening. His blood pressure initially was markedly elevated to systolic in the 200s. His workup revealed a blood glucose level of 71. He was given amp of D50. His creatinine was 1.75, essentially normal at baseline. Procalcitonin was negative, however, lactate was elevated at 2. White blood cell count 18,000. ABG showed acidosis with a pH of 7.28, pCO2 of 73. His UA was negative, did show some bacteriuria. UDS was also negative. Patient's CT scan of the head was negative for any acute changes. CT chest, abdomen, and pelvis showed a left lower lobe opacity along with moderate pericardial effusion with increased density. Large amount of stool also within the colon. Patient was given antibiotics, full-dose Lovenox. Echocardiogram was ordered for the effusion and was referred for admission. His troponin was also elevated at 0.25. When seen in the ER, the patient was intubated, sedated, nonresponsive. No family at the bedside. History is limited due to patient's medical condition obtain from staff, previous medical records. Past Medical History: Hypertension, gout, hyperlipidemia, neuropathy, Lyme disease, arthritis, diabetes, non-insulin dependent hypothyroidism, insomnia. Patient also has coronary artery disease. Past Surgical History: Cataract. Allergies: DOXYCYCLINE AND ZOFRAN. Medications: List reviewed. Family History: Unable to obtain, not pertinent in this patient. Social History: No known history of tobacco use or alcohol use. Patient is resident of nursing facility. Review of Systems: Limited due to patient's medical condition. Physical Examination: Vital Signs: Blood pressure 210/112, pulse 84, respirations 20, temperature 98.5, O2 of 79% on room air. General: Intubated, sedated, nonresponsive, ill-appearing male. HEENT: Normocephalic, atraumatic. PERRLA. Moist mucous membranes. ET tube in place. Neck: Supple. No JVD. Trachea midline. CV: S1, S2. Irregularly irregular. Peripheral pulses present. Respiratory: Diminished breath sounds. Some rhonchi present. No wheezing or stridor. No use of accessory muscles. Gastrointestinal: Abdomen is soft, nontender, nondistended. Positive bowel sounds. No guarding or rigidity. Extremities: No clubbing, cyanosis. No peripheral edema. Neuro: Patient is intubated, sedated, nonresponsive, on ET tube. Skin: No rashes. Normal skin turgor. Laboratory Data: UDS is negative. UA, negative nitrite, negative leukocyte esterase, less than 5 wbc's, less than 5 squamous epithelial cells, greater than 50 urine bacteria, 2+ protein. Sodium 140, potassium 4.8, chloride 98, CO2 of 37, BUN 67, creatinine 1.75, glucose 66, lactate 2.1, calcium 8.9, troponin 0.25. Albumin 2.8, procalcitonin 0.12. Lipase 81. ABG; pH 7.28, pCO2 of 73.6, pO2 of 237, bicarb is 33. INR is 1.31. WBC 18.5, H and H 9.3 and 28.9, platelets 517. Imaging Studies: CT scan of the head shows no acute changes. CT scan of the chest, abdomen, and pelvis shows left lower lobe opacity. May represent atelectasis, pneumonia, or combination of mass and atelectasis/pneumonia. Probable [id number]-mzisipis pericardial effusion with increased density. Ultrasound of the heart recommended increased density within the gallbladder may represent stones or calcium bile. Large amount of stool present within the colon. Chest x-ray pending. Assessment: A 73-year-old male with: 1. Acute respiratory failure with hypoxia and hypercapnia, status post intubation and mechanical ventilation. We will consult pulmonology, likely secondary to pneumonia. No history of chronic obstructive pulmonary disease. We will continue on ventilatory support, placed in ICU. 2. Acute metabolic encephalopathy. Patient's mental status declined and required intubation, unclear etiology. Patient does have source of infection including pneumonia. CT scan of the head is negative for any acute bleed or mass effect. 3. Non-ST segment elevation myocardial infarction. Troponin level is 0.25, likely due to history of coronary artery disease. Additionally, patient showing up in atrial fibrillation. 4. New onset atrial fibrillation, rate controlled. We will start on beta- blockers. Continue with Lovenox therapeutic dose. 5. Acute kidney injury. Creatinine is 1.75, normal at baseline, unclear etiology, may be due to dehydration or prerenal azotemia. 6. Diabetes mellitus type 2, [id number]-[id number] with hypoglycemia. Glucose was 66 status post amp of D50. We will continue to monitor glucose level. Start on D5 half NS. 7. History of hypertension, currently hypotensive. Patient came in with a blood pressure of 200. After being started on propofol has dropped to the 90s systolic. Continue with IV fluids, back up on propofol drip. 8. History of gout, stable. 9. Mixed hyperlipidemia. Continue statin. 10. History of coronary artery disease status post myocardial infarction. Continue with aspirin, statin, beta-beatrice. 11. Generalized osteoarthritis, stable. 12. Hypothyroidism. We will check TSH. Continue levothyroxine. 13. Pericardial effusion. We will check echocardiogram. Overall guarded prognosis. Plan: Admit patient to ICU. Place as inpatient. We will consult Pulmonology and Cardiology. Length of stay greater than 2 midnights. DANNY Voice ID: [id number] MTDD
[2019-01-08 05:05] LABS: Absolute Lymphocytes (CBC) 1.4 K/uL (0.7-4.9); Basophils % 0.7 % (0-1.3); Hematocrit 22.9 % (39.6-49.0); MPV 8.5 fL (7.6-11.3); RBC Red Blood Cell Count 2.76 M/uL (4.33-5.43)
[2019-01-08 05:18] LABS: Potassium 3.7 mmol/L (3.5-5.1)
[2019-01-08 05:34] VITALS: BMI 26.1
--- NOTE | 2019-01-08 07:27 | EKG ---
Test Date: 2019-01-07 Test Time: 14:17:04 Final Application Reviewer: ARISTEO MEASUREMENT RESULTS: Intervals: Rate: 111 OK: QRSD: 172 QT: 400 QTc: 544 [place]ushing: P: OK: QRS: 102 T: -63 INTERPRETIVE STATEMENTS: afib with rvr Rightward axis Left bundle branch block Abnormal ECG No previous ECG available for comparison Electronically Signed On 01-08-19 07:25:41 CDT by Doug Vines
[2019-01-08] MEDS ORDERED: CEFTRIAXONE/SWI 1gm 1 GM/10 ML SYR IV SCH (09:00)
[2019-01-08] MEDS ORDERED: AZITHROMYCIN IV 500 MG in NA CHLORIDE 0.9% 250 ML IVPB SCH (09:00)
[2019-01-08 09:10] LABS: Hematocrit 26.7 % (39.6-49.0)
[2019-01-08] MEDS ORDERED: HOME MED 1 EA UNK (Ipratropium/Albuterol Sulfate [Iprat-Albut 0.5-3(2.5) Mg/3 Ml] 3 ML) IH PRN (09:30)
[2019-01-08] MEDS ORDERED: NITROGLYCERIN 0.4 MG/TAB SL PRN (09:30)
[2019-01-08] MEDS: ENOXAPARIN 80 MG/0.8 ML SQ SCH ×2 (09:35→22:00)
[2019-01-08] MEDS: ASPIRIN EC 81 MG TAB PO SCH (09:35)
[2019-01-08] MEDS: CARVEDILOL 6.25 MG TAB PO SCH ×2 (09:35→21:59)
[2019-01-08] MEDS ORDERED: ALBUTEROL 2.5 MG/3 ML NEB SOL IH PRN ×2 (09:53→15:00)
[2019-01-08] MEDS ORDERED: IPRATROPIUM BROM 0.5MG/2.5ML IH PRN (09:54)
[2019-01-08] MEDS ORDERED: ETOMIDATE 20 MG/10 ML VIAL IV ONE (10:12)
[2019-01-08] MEDS ORDERED: SUCCINYLCHOLINE 20 MG/ML (10 ML) IV ONE (10:12)
--- NOTE | 2019-01-08 11:32 | ECHO ---
HEIGHT: 5 ft 9 in WEIGHT: 177 lb 0 oz DATE OF STUDY: 01/08/[address]: Andrea Vivas MD 2-DIMENSIONAL: YES M.MODE: YES DOPPLER: YES COLOR FLOW: YES TDS: NO PORTABLE: NO DEFINITY: NO BUBBLE STUDY: NO DIAGNOSIS: CARDIAC EFFUSION ON CT SCAN CARDIAC HISTORY: CATHERIZATION: NO SURGERY: NO PROSTHETIC VALVE: NO PACEMAKER: YES MEASUREMENTS (cm) DIASTOLIC (NORMALS) SYSTOLIC (NORMALS) IVSd 1.3 (0.6-1.2) LA Diam 3.5 (1.9-4.0) LVEF 35% LVIDd 4.8 (3.5-5.7) LVIDs 3.8 (2.0-3.5) %FS % LVPWd 1.5 (0.6-1.2) Ao Diam 2.8 (2.0-3.7) 2 DIMENSIONAL ASSESSMENT: RIGHT ATRIUM: NORMAL LEFT ATRIUM: NORMAL RIGHT VENTRICLE: NORMAL LEFT VENTRICLE: LEFT VENTRICULAR HYPERTROPHY TRICUSPID VALVE: NORMAL MITRAL VALVE: NORMAL PULMONIC VALVE: NORMAL AORTIC VALVE: SCLEROSIS PERICARDIAL EFFUSION: NONE AORTIC ROOT: NORMAL LEFT VENTRICULAR WALL MOTION: MODERATE GLOBAL HYPOKINESIS. DOPPLER/COLOR FLOW: MILD MITRAL AND TRICUSPID REGURGITATION. COMMENTS: NO PERICARDIAL EFFUSION. MILD MITRAL AND TRICUSPID REGURGITATION. EJECTION FRACTION 35% - MODERATE GLOBAL HYPOKINESIS. LEFT VENTRICULAR HYPERTROPHY. AORTIC SCLEROSIS. TECHNOLOGIST: HAIDER VELAZQUEZ
--- NOTE | 2019-01-08 11:55 | P.CNS ---
Date of Consult: 01/08/19 Reason for Consult: Respiratory failure pneumonia Chief Complaint: Respiratory failure patient on a ventilator History of Present Illness: Patient is 73 years of age currently on a ventilator admitted from a retirement with altered mental status and hypoxemia that was not easily corrected with a non-rebreather he was subsequently intubated transferred to the ICU chest x-ray showed a pneumonia on the left side patient was hypertensive hypoglycemic renal failure this morning very alert responsive cooperative he was easily weaned and extubated from the ventilator Allergies doxycycline Allergy (Verified 01/07/19 23:14) unknown ondansetron [From Zofran] Allergy (Verified 01/07/19 23:14) unknown Home Medications: Acarbose [Precose] 25 mg PO TIDWM 01/08/19 Acetaminophen [Tylenol] 650 mg PO Q6HP PRN 01/08/19 Albuterol Sulfate [Albuterol Sulfate 0.083% Neb Soln] 2.5 mg IH Q6H PRN Aspirin [Aspir-Low] 81 mg PO DAILY 01/08/19 Atorvastatin Calcium [Lipitor] 80 mg PO BEDTIME 01/08/19 Bumetanide 2 mg PO BID 01/08/19 Cholestyramine/Aspartame [Cholestyramine Light Packet] 4 gm PO TIDWM 01/08/19 Fluticasone Propionate [Flovent Diskus] 2 spray IH DAILY 01/08/19 Hum Insulin NPH/Reg Insulin Hm [Humulin 70-30 Vial] 15 unit SQ DAILY 01/08/19 Ipratropium/Albuterol Sulfate [Iprat-Albut 0.5-3(2.5) mg/3 ml] 3 ml IH Q6HP PRN 01/08/19 Levothyroxine Sodium [Unithroid] 1 tab PO DAILY 01/08/19 Liraglutide [Victoza 2-Skyler] 1.8 mg SQ DAILY 01/08/19 Metformin HCl [Metformin HCl ER] 1,000 mg PO BID 01/08/19 Metoprolol Succinate/Hctz [Metoprolol ER-Hctz 25-12.5 mg] 12.5 mg PO DAILY 01/08 NPH, Human Insulin Isophane [Humulin N] 30 unit SQ DAILY 01/08/19 Nitroglycerin [Nitrostat*] 1 tab SL Q5M PRN 01/08/19 Pantoprazole Sodium [Protonix] 40 mg PO BID 01/08/19 Polyethylene Glycol 3350 [Miralax] 17 gm PO BID 01/08/19 Pregabalin 300 mg PO BID 01/08/19 Ramelteon [Rozerem] 8 mg PO BEDTIME 01/08/19 Sennosides 8.6 mg PO BID 01/08/19 Tamsulosin HCl [Flomax] 0.4 mg PO DAILY 01/08/19 Temazepam [Restoril] 15 mg PO BEDTIME PRN 01/08/19 Trazodone HCl 50 mg PO BEDTIME 01/08/19 traMADol HCL [Ultram] 50 mg PO TID PRN 01/08/19 - Past Medical/Surgical History -: Myocardial infarction; -: Lyme is disease -: Hypertension -: gout -: Hypothyroidism - Social History Smoking Status: Unknown if ever smoked Place of Residence: [place] Review of Systems is unable to be obtained Physical Examination Temp Pulse Resp BP Pulse Ox 98.6 F 112 H 24 H 124/76 97 01/08/19 06:00 01/08/19 10:00 01/08/19 10:00 01/08/19 10:00 01/08/19 10:00 General: Alert, Cooperative Neck: Supple Respiratory: Diminished (Diminished on the left side with some crackles) Cardiovascular: No edema, Regular rate/rhythm, Normal S1 S2 Gastrointestinal: Normal bowel sounds, Soft and benign Laboratory Data (last 24 hrs) 01/07/19 14:15: PT 15.3 H, INR 1.31, APTT 33.0 01/07/19 14:15: Sodium 140, Potassium 4.8, BUN 67 H, Creatinine 1.75 H, Glucose 66 L, Total Bilirubin 0.3, AST 22, ALT 22, Alkaline Phosphatase 104, Lipase 81 01/07/19 14:10: WBC 18.5 H D, Hgb 9.3 L, Hct 28.9 L, Plt Count 517 H - Problems (1) Respiratory failure Current Visit: Yes Status: Acute Plan: Patient is 73 years of age admitted with respiratory failure left-sided pneumonia hypoxic hypercapnic respiratory failure acute on chronic renal failure they have pneumonia on the left side with the pleural effusion patient is at risk for 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
[2019-01-08] MEDS: CHOLESTYRAMINE/ASP 4 GM/PKT PO SCH ×2 (12:00→16:04)
[2019-01-08] MEDS: PIPER/TAZO/NS 3.375gm 3.375 GM/100 ML BAG IVPB SCH ×2 (12:32→21:59)
[2019-01-08] MEDS: LEVALBUTEROL 1.25 MG/3 ML NEB NEB SCH ×2 (14:07→20:00)
[2019-01-08] MEDS: ACETAMINOPHEN 500 MG TAB PO PRN (14:20)
[2019-01-08 14:43] LABS: Thyroid Stimulating Hormone 7.84 uIU/mL (0.360-3.740)
--- NOTE | 2019-01-08 15:24 | PN ---
Date of Progress Note: 01/08/2019 Subjective: Patient seen and examined. Chart reviewed and case discussed with RN. The patient awake and alert, about to be extubated. No acute events overnight. Medications: List reviewed. Physical Examination: Vital Signs: Temperature 98.6, heart rate 85, blood pressure 96/55, respirations 18, O2 100% on ET tube, 60% FiO2. General: Awake, alert, ET tube still in place, ill-appearing elderly male. CV: S1, S2. Paced rhythm. No murmurs. Peripheral pulses present. Respiratory: Diminished breath sounds, rhonchi present. No wheezing or stridor. No use of accessory muscles. Gastrointestinal: Abdomen is soft, nontender, nondistended. Positive bowel sounds. Extremities: No clubbing, cyanosis, or edema. Neuro: Cranial nerves 2 through 12 intact grossly. Moves all 4 extremities. Follows commands. Laboratory Data: Sodium 142, potassium 3.7, chloride 103, CO2 29, BUN 69, creatinine 1.93, glucose 83, calcium 8.1. Troponin 0.42 and 0.49, triglycerides 98, cholesterol 50, LDL 5, HDL 25. Blood cultures pending. Urine culture, no growth to date. Sputum culture also pending. Assessment And Plan: A 73-year-old male with. 1. Acute respiratory failure with hypoxia and hypercapnia, status post intubation, currently on mechanical ventilation, being weaned off, will likely be extubated today. Appreciate pulmonology input, likely secondary to pneumonia. 2. Acute metabolic encephalopathy, resolving. Head CT scan is negative. The patient now following commands, awake and alert, off sedation. 3. Non-ST segment elevation myocardial infarction. Troponin level went up to 0.49. We will continue with chest pain guidelines and full-dose Lovenox. Cholesterol is low. Patient has been on high dose of statin. 4. New onset atrial fibrillation, now back to paced rhythm. 5. Acute kidney injury. Creatinine is worsening at 1.9 today. We will switch IV fluids to NS. 6. Diabetes mellitus type 2, [id number]-nllzaymqf with hypoglycemia. Blood glucose levels have been trending around 100. 7. Hypotension. The patient's blood pressure in the 90s, systolic. Continue with IV fluids. Keep MAP above 65. 8. Gout, stable. 9. Mixed hyperlipidemia. We will continue statin. Lipid panel reviewed. 10. History of coronary artery disease, [place] artery, [place] heart with angina. status post OK. Continue aspirin, statin, beta-beatrice. 11. Generalized osteoarthritis, stable. 12. Hypothyroidism. Continue levothyroxine. 13. Pericardial effusion. Echocardiogram still pending. Plan: Continue monitoring in the ICU setting. Review of echocardiogram was obtained. We will discuss case with Cardiology. 17:01 ADDENDUM Patient ok to step down from ICU. Case discussed with Dr. Vines and Dr. Elias. Echo shows very low EF. Patient needs heart cath as out patient. No pericardial effusion on echo. SA/MODL Voice ID: [id number] Report ID: [id number] YAMIL
[2019-01-08] MEDS ORDERED: D50W 25 GM/50 ML SYRINGE IV PRN (16:28)
[2019-01-08] MEDS ORDERED: GLUCAGON 1 MG/VIAL IM PRN (16:28)
[2019-01-08] MEDS: INSULIN -REGULAR HUMAN 50 UNIT/0.5 ML ML SQ SCH ×2 (16:30→21:59)
[2019-01-08] MEDS: NA CHLORIDE 0.9% 1,000 ML IV SCH (16:54)
[2019-01-08] MEDS ORDERED: ATORVASTATIN 80 MG TAB PO SCH (21:00)
[2019-01-08] MEDS: PANTOPRAZOLE 40MG TABLET PO SCH (21:59)
[2019-01-08] MEDS: SENOSIDES 8.6 MG TAB PO SCH (21:59)
[2019-01-08] MEDS: POLYETHYL GLY 3350 17 GM/DOSE PO SCH (22:00)
[2019-01-09] MEDS: LEVALBUTEROL 1.25 MG/3 ML NEB NEB SCH ×4 (02:00→19:35)
[2019-01-09] MEDS: LORAZEPAM 0.5 MG TABLET PO PRN ×2 (02:17→20:52)
[2019-01-09] MEDS: LEVOTHYROXINE SOD 0.075 MG TAB PO SCH (05:14)
[2019-01-09] MEDS: PIPER/TAZO/NS 3.375gm 3.375 GM/100 ML BAG IVPB SCH (05:14)
[2019-01-09 05:17] LABS: Absolute Lymphocytes (CBC) 0.8 K/uL (0.7-4.9); Basophils % 0.2 % (0-1.3); Hematocrit 24.3 % (39.6-49.0); Lymphocytes % 6.5 % (15.3-44.8); MPV 9.1 fL (7.6-11.3); RBC Red Blood Cell Count 2.91 M/uL (4.33-5.43)
[2019-01-09 05:25] LABS: Potassium 4.2 mmol/L (3.5-5.1)
[2019-01-09] MEDS: FENTANYL CITR 100 MCG/2 ML IV PRN ×2 (06:11→22:15)
[2019-01-09] MEDS: NA CHLORIDE 0.9% 1,000 ML IV SCH (06:20)
--- NOTE | 2019-01-09 08:12 | RAD REPORT ---
EXAM DESCRIPTION: RAD - Chest Single View - 01/09/2019 6:45 am CLINICAL HISTORY: Pneumonia pleural effusion Chest pain. COMPARISON: Chest Single View dated 01/07/2019; Chest Single View dated 01/07/2019 FINDINGS: Portable technique limits examination quality. Near complete left along opacification is noted, likely due to a combination of pleural fluid and pne umonia, progressive since the comparative study. Cardiac silhouette this obscured. Dual lead pacer de vice is present. The right lung is emphysematous.
[2019-01-09 08:40] LABS: Platelet Estimate ADEQ
[2019-01-09 08:41] LABS: Anisocytosis 1+; Blood Morphology Comment NOTED (NOT SEEN); Poikilocytosis 1+
[2019-01-09] MEDS ORDERED: FLUTICASONE PROPIONATE IH SCH (09:00)
[2019-01-09] MEDS: INSULIN -REGULAR HUMAN 50 UNIT/0.5 ML ML SQ SCH ×4 (09:09→20:52)
[2019-01-09] MEDS: POLYETHYL GLY 3350 17 GM/DOSE PO SCH ×2 (09:09→21:00)
[2019-01-09] MEDS: CHOLESTYRAMINE/ASP 4 GM/PKT PO SCH ×3 (09:09→17:43)
[2019-01-09] MEDS: TAMSULOSIN 0.4 MG SR CAP PO SCH (09:10)
[2019-01-09] MEDS: PANTOPRAZOLE 40MG TABLET PO SCH ×2 (09:10→20:51)
[2019-01-09] MEDS: CARVEDILOL 6.25 MG TAB PO SCH ×2 (09:10→20:51)
[2019-01-09] MEDS: SENOSIDES 8.6 MG TAB PO SCH ×2 (09:10→20:52)
[2019-01-09] MEDS: ASPIRIN EC 81 MG TAB PO SCH (09:10)
--- NOTE | 2019-01-09 09:59 | CON ---
Date of Consultation: 01/08/[address] Hong's service on 01/07/2019, I saw the patient on 01/08/2019. Reason For Consultation: Elevated troponin and acute altered mental status. History Of Present Illness: Mr. Bernard is a 73-year-old male, has significant past medical history i ncluding pacemaker, myocardial infarction, hypertension, dyslipidemia, gout, Lyme disease, diabetes, history of GI bleed, hypothyroidism, history of insomnia, sepsis and neuropathy, came in with altered mental status, hypoxic, requiring intubation. CT of the chest showed possible pericardial effusion, pneumonia and gallstones. Patient denied any chest pain or shortness of breath. Past Medical History: As stated above. Allergies: DOXYCYCLINE AND ZOFRAN. Review of Systems: Negative. Social History: Negative. Family History: Noncontributory. Medications: At home, includes aspirin, inhalers, Bumex, insulin, Synthroid, Victoza, metoprolol, me tformin, Protonix, nitroglycerin as needed, and Neurontin. Physical Examination: General: Patient was intubated when I initially saw him. In the ICU, he was in a paced rhythm, rj monisha, afebrile. Vital Signs: Blood pressure was 100/87. HEENT: Negative. Neck: Supple without bruit, lymphadenopathy, JVD or thyromegaly. Chest: Actually clear. Cardiac: Revealed a paced rhythm. No murmurs, gallops, or rubs. Abdomen: Benign. Extremities: Revealed no clubbing, cyanosis, or edema. Skin: Dry and intact. Pulses were present bilaterally, symmetrically distally. Diagnostic Data: His EKG showed paced rhythm. Chest x-ray was negative. CT of the head was negativ e. CT of the abdomen showed gallstones, possible pericardial effusion, possible pneumonia. Patient is being treated with antibiotics now. Troponin was 0.25 and 0.49. His white count was 18,000, hemo globin is 7.3. Impression And Plan: 1.Acute altered mental status. Elevated troponin, certainly could be related to acute systolic mitali estive heart failure or acute cardiomyopathy or myocardial infarction. His blood work indicates non- ST elevation myocardial infarction. His creatinine however is 1.93, which could have caused elevated troponin. He is also very anemic which could have caused elevated troponin. The patient obviously is in no shape for coronary intervention at this point. I recommended a 2D echocardiogram. Once he is extubated his mental status improves and his hemoglobin improves, then we will consider a catheter ization then. 2.His other problems include status post pacemaker which seems to be functioning appropriately. 3.Diabetes. 4.History of GI bleed. 5.History of gout. 6.History of hypothyroidism. 7.Hypertension, well controlled. 8.History of insomnia. 9.History of sepsis. 10.History of neuropathy. 11.History of dyslipidemia, well controlled. 12.History of Lyme disease. 13.We will continue to follow him along with Dr. Hong and make decisions depending on his progress. WES/MISTY Voice ID: [id number] Report ID: [id number]
[2019-01-09] MEDS ORDERED: LIDOCAINE 1% 20 ML MDV IV ONE (10:03)
--- NOTE | 2019-01-09 10:22 | RAD REPORT ---
EXAM DESCRIPTION: CT - Thorax Wo Con - 01/09/2019 9:43 am CLINICAL HISTORY: Chest pain, shortness of breath, abnormal chest film COMPARISON: Portable chest January 09 in January 07, CT chest January 07 TECHNIQUE: Axial 5 mm thick images of the chest were obtained without IV contrast. All CT scans are performed using dose optimization technique as appropriate and may include automated exposure control or mA/KV adjustment according to patient size. FINDINGS: Moderately large left pleural effusion is present similar in volume to the short interval January 07 study. Partial atelectasis of the left upper lobe is present primarily involving the jonny gula. There is atelectasis of the left lower lobe. No large mass lesion evident. Pneumonia within the atelectatic lung cannot be excluded. Small right pleural effusion is present similar to comparison. There is partial atelectasis of the ri ght lower lobe. No infiltrate in the right upper or right middle lobes. No endobronchial lesions seen . No pneumothorax. No pleural based mass identifiable. No abnormal mediastinal or hilar masses or lymphadenopathy seen. No gross aortic or pulmonary artery finding suspected. Pericardial effusion is present similar to comparison. This is relatively high de nsity fluid. No chest wall mass or abnormal axillary lymphadenopathy. Pacemaker is in place. Aortic arterial calcifications are present. Bony degenerative changes are pres ent. No pathologic bone process seen. IMPRESSION: Mildly large left pleural effusion causing complete left lower lobe atelectasis and part ial atelectasis of the left upper lobe. No large mass lesions seen. Pneumonia and small masses within the atelectatic lung cannot be excluded on this noncontrast study. High density pericardial effusion. Small right pleural effusion with partial right lower lobe atelectasis. CT chest findings are not substantially different from January 07.
--- NOTE | 2019-01-09 11:07 | PN ---
Date of Progress Note: 01/09/2019 Subjective: Mr. Bernard had come into the hospital with altered mental status, non-ST elevation myoca rdial infarction, intubated, possible pneumonia, anemia, and renal dysfunction. He was found yesterd ay by echocardiography to have an ejection fraction of 35%, which seems to be a newer onset. Mr. Mark rojo is on the floor now on telemetry in sinus rhythm, but he is still very confused. This morning, viola delgado had only wanted to hurt himself if he does not feel any better. I will relay that information to h is primary care physician. Mr. Bernard is certainly not in no shape to have an any invasive cardiac w orkup at this point. He has hemoglobin of 7.3, creatinine is 1.93. He has altered mental status, is still being treated for pneumonia, was extubated yesterday. I would prefer we treat him for his pne umonia, wait for his hemoglobin and mental status to improve before we do any invasive cardiac workup . This will definitely have to be done as an outpatient. WES/MISTY Voice ID: [id number] Report ID: [id number]
--- NOTE | 2019-01-09 12:08 | P.PN ---
Subjective Date of Service: 01/09/19 Chief Complaint: Abnormal Chest X ray Patient agitated chest x-ray very abnormal here now almost complete opacification of the left lung Review of Systems General: Weakness Respiratory: Cough, Shortness of Breath Physical Examination - Vital Signs Temperature: 97.2 F Blood Pressure: 133/81 Pulse: 101 Respirations: 28 Pulse Ox (%): 96 - Physical Exam General: Alert, Mild distress, Delirious Neck: Supple Respiratory: Diminished (Patient has bronchial breathing on the left side) Cardiovascular: No edema, Normal pulses - Studies Microbiology Data (last 24 hrs): 01/07/19 14:50 Catheterized Urine [place] Count - Final 01/07/19 14:50 Catheterized Urine - Final No growth. Assessment & Plan - Problems (Diagnosis) (1) Atelectasis Current Visit: Yes Status: Acute Plan: Patient has come almost complete atelectasis of the left lung CT scan shows combination of atelectasis and pleural effusion will proceed with the chest percussion for now BiPAP to see if it helps will review chest x-ray tomorrow seafood benefit from either a chest tube or bronchoscopy
[2019-01-09 12:10] LABS: Hematocrit 25.4 % (39.6-49.0)
--- NOTE | 2019-01-09 13:23 | RAD REPORT ---
EXAM DESCRIPTION: US - Renal Ultrasound-Complete - 01/09/2019 1:17 pm CLINICAL HISTORY: [facility] COMPARISON: No comparisons FINDINGS: Both kidneys are normal in size, shape and echotexture. The right kidney measures 15.0 x 5.3 x 5.0 cm. No hydronephrosis. Several benign appearing right luci l cysts are noted the largest measuring 6.9 x 5.7 cm. The left kidney measures 10.5 x 6 1 x 5.3 cm. No hydronephrosis, focal mass or perinephric fluid. 3.3 x 3.1 cm benign left renal cyst. The urinary bladder is incompletely distended without gross abnormality seen. IMPRESSION: Bilateral renal cysts are present without hydronephrosis.
--- NOTE | 2019-01-09 15:22 | PN ---
Date of Progress Note: 01/09/2019 Subjective: Patient was seen and examined. Chart reviewed and case discussed with RN and Dr. Elias. The patient very much agitated. Treatment plan explained. All questions answered. Patient states he is tired of lying in bed for the past 30 days, likely referring to the nursing facility. Medications: List reviewed. Physical Examination: Vital Signs: Temperature 97.2, heart rate 101, blood pressure 133/81, respirations 28, O2 at 96% on 3 L via nasal cannula. General: Awake, alert, oriented x3, in some mild distress. Elderly male, ill- appearing. CV: S1, S2. Peripheral pulses present. Respiratory: Diminished breath sounds. No air movement on the left side. The patient is tachypneic. Gastrointestinal: Abdomen is soft, nontender, nondistended. Positive bowel sounds. Extremities: No clubbing, cyanosis, or edema. Neurologic: Nonfocal. Laboratory Data: Sodium 145, potassium 4.2, chloride 106, CO2 of 31, BUN 70, creatinine 2.02, glucose 193. Hemoglobin A1c 7.3%. Calcium 8.2. TSH 7.84, free T4 of 0.93. WBC 12.9, H and H 7.7 and 24.3, platelets 388, neutrophils 86% . Blood cultures, no growth to date. Sputum cultures pending. CT scan of the chest shows mildly large left pleural effusion causing complete left lower lobe atelectasis and partial atelectasis of the left upper lobe. No large mass, lesions seen, pneumonia and small masses within the atelectatic lung cannot be excluded, high density, pericardial effusion, small right pleural effusion with partial right lower lobe atelectasis. CT chest finding positive x2, different from January 07. Chest x-ray personally reviewed, shows left lobe white-out , likely pleural effusion, progressive since comparative study. Dual-lead pacemaker present, right lung emphysematous. Assessment And Plan: A 73-year-old male with: 1. Acute respiratory failure with hypoxia, hypercapnia, now extubated secondary to pneumonia. 2. Acute metabolic encephalopathy, resolved. Head CT negative. 3. NSTEMI. Continue with chest pain guidelines. Appreciate Cardiology input. Echocardiogram shows global hypokinesis. EF of 35%. 4. Hypertensive heart disease. 5. Left lobe pleural effusion. Chest x-ray and CT shows complete white-out. The patient will likely need thoracentesis. Appreciate Dr. Elias's input. 6. Acute kidney injury. Creatinine worsening. We will consult Nephrology. Adjust IV fluids. 7. Diabetes mellitus type 2 [id number], now with hyperglycemia. We will start on long-acting insulin. Hemoglobin A1c is 7.3%. Initially, patient was hypoglycemic. 8. Hypotension. Blood pressure waxing and waning however significantly improved from previous. 9. Gout, stable. 10. Mixed hyperlipidemia. Continue statin. 11. History of coronary artery disease, [place] artery and [place] heart with angina. We will continue home medications. 12. Generalized osteoarthritis, stable. 13. Hypothyroidism. We will continue levothyroxine. 14. Pericardial effusion on CT. Echocardiogram does not show any effusion. 15. Personality disorder, NOS. 16. Deep vein thrombosis prophylaxis, addressed. Disposition: Likely discharge in the next 48 to 72 hours depending on clinical response. /MISTY Voice ID: [id number] Report ID: [id number] YAMIL
[2019-01-09] MEDS: PIPER/TAZO/NS 2.25gm 2.25 GM/50 ML BAG IVPB SCH (17:37)
[2019-01-09] MEDS: ACETAMINOPHEN 500 MG TAB PO PRN (17:38)
[2019-01-09] MEDS: IPRATROPIUM BROM 0.5MG/2.5ML IH PRN (19:35)
[2019-01-09] MEDS ORDERED: NA CHLORIDE 0.9% 1,000 ML IV SCH (22:00)
[2019-01-10] MEDS: PIPER/TAZO/NS 2.25gm 2.25 GM/50 ML BAG IVPB SCH ×3 (00:21→16:49)
[2019-01-10] MEDS: LEVALBUTEROL 1.25 MG/3 ML NEB NEB SCH ×4 (01:10→19:50)
--- NOTE | 2019-01-10 04:25 | CON ---
Date of Consultation: 01/09/2019 Reason For Consultation: Elevated BUN and creatinine, fluid management. History Of Present Illness: This is a pleasant 73-year-old gentleman with significant past medical history of diabetes complicated with neuropathy, hypertension, hyperlipidemia, status post CABG and stenting, lung disease, hypothyroidism. Patient was recently admitted to [facility] with diagnosis of pneumonia. At that time, he spent in the hospital around 4 weeks _ . His hospital course was complicated with acute kidney injury. The patient did not require any dialysis. The patient in the [place] [facility] found to have altered mental status and hypoxemic, for that reason brought to the emergency room. In the emergency room, found to have hypercapnic respiratory failure with leukocytosis. For that reason, patient was readmitted. Upon admission, his blood pressure was down on the 80s. Upon admission, his creatinine was marginally elevated 1.7 and gradually creatinine starts rising. Currently creatinine is 2. For that reason, we are being consulted. Patient apparently in the [place] [facility] being on metformin. According to the family, they do not recall any IV contrast. No IV contrast in this admission. No other medication except the Bumex. Patient denied any rash or itching during the hospitalization patient being placed on treatment for his pneumonia. Past Medical History: 1. Diabetes, complicated with neuropathy. 2. Lyme disease. 3. Hyperlipidemia. 4. Coronary artery disease, status post PTCA. 5. Hypothyroidism. Past Surgical History: Cataract. Allergies: DOXYCYCLINE AND ZOFRAN. Family History: Positive for hypertension. Social History: Lives in [facility]. Home Medications: 1. Tylenol. 2. Levothyroxine. 3. Tramadol. 4. Metformin. 5. Insulin. 6. Trazodone. 7. Flomax. 8. Bumex 2 mg b.i.d. 9. Aspirin. 10. Metoprolol. 11. Atorvastatin. Current Medications In The Hospital: 1. Carvedilol. 2. Aspirin. 3. Fentanyl. 4. Haloperidol. 5. Levothyroxine. 6. Nitroglycerin. 7. Zosyn 3.75. 8. Flomax. Review of Systems: Head and Neck: no JVD GI: Has nausea without any vomiting. : No polyuria, no dysuria, no hematuria. Meteorology Instructor: Not applicable. Respiratory: Has shortness breath. Has cough. Cardiovascular: No chest pain. Endocrine: No polydipsia. Skin: No rash. Neuro: Has neuropathy. Musculoskeletal: Generalized body ache. Physical Examination: Vital Signs: Currently blood pressure 134/60, pulse of 92. Occasional low blood pressure. Chest: Crackles on the right base. Heart: S1, S2. Regular. Systolic murmur. Abdomen: Soft, nontender. Extremities: No edema. Neuro: Alert. Nonfocal. Laboratory Data: Sodium 145, potassium 4.2, bicarb 31, BUN 70, creatinine 2. GFR of 8.2. WBC 12.9, H and H 7.7/24.3, platelets of 388. ABG; pH of 7.28, CO2 of 73, O2 of 237, saturation of 97. Urinalysis, wbc's less than 5. Urine drug screen was negative. Assessment And Plan: 1. Acute kidney injury, mostly secondary to poor perfusion; acute tubular necrosis secondary to low blood pressure, nonoliguric. No hyperkalemia. I am going to go ahead and start tapering down also beta beatrice to discontinue to maintain good blood pressure. 2. We will send for the workup including the renal ultrasound, UA with protein and creatinine, and we will follow up the patient. I am going to continue on a gentle hydration the patient for the time being. 3. Hypertension, currently blood pressure on the lower side. Keep holding the blood pressure medication. 4. Pneumonia. Decrease Zosyn to 2.25. 5. Anemia in the presence of acute kidney injury. Light chain disease needs to be ruled out. We will send for the workup. 6. Chronic kidney disease, baseline around 1.2 last month mostly secondary to diabetes, nephropathy, hypertension, nephrosclerosis. We will send for PTH, protein, creatinine, and renal ultrasound to evaluate the chronicity of the disease. 7. Coronary artery disease as by Cardiology. Thank you, Dr. Hong, for allowing us to participate in the care of your patient. DARRICK Voice ID: [id number] Report ID: [id number] MTDD
[2019-01-10 05:21] LABS: Absolute Lymphocytes (CBC) 1.1 K/uL (0.7-4.9); Basophils % 0.4 % (0-1.3); Hematocrit 25.3 % (39.6-49.0); Lymphocytes % 9.7 % (15.3-44.8); MPV 8.8 fL (7.6-11.3); RBC Red Blood Cell Count 3.05 M/uL (4.33-5.43)
[2019-01-10 05:23] LABS: Protime INR 1.33
[2019-01-10 05:24] LABS: RBC Red Blood Cell Count 2.93 M/uL (4.33-5.43)
[2019-01-10 06:01] LABS: Albumin 2.2 g/dL (3.4-5.0); Ferritin 151.7 ng/mL (26-388); Folic Acid, (Folate) 6.8 ng/mL (3.1-17.5); Phosphorus 2.8 mg/dL (2.5-4.9); Uric Acid 8.4 mg/dL (3.5-7.2)
[2019-01-10] MEDS: LEVOTHYROXINE SOD 0.075 MG TAB PO SCH (06:30)
[2019-01-10] MEDS: INSULIN -REGULAR HUMAN 50 UNIT/0.5 ML ML SQ SCH ×4 (07:30→20:58)
[2019-01-10] MEDS: FENTANYL CITR 100 MCG/2 ML IV PRN (07:50)
[2019-01-10] MEDS: CHOLESTYRAMINE/ASP 4 GM/PKT PO SCH ×3 (08:00→16:52)
--- NOTE | 2019-01-10 08:16 | RAD REPORT ---
EXAM DESCRIPTION: RAD - Chest Single View - 01/10/2019 6:57 am CLINICAL HISTORY: Atelectasis and pleural effusion COMPARISON: January 09 TECHNIQUE: AP portable chest image was obtained [id number] hours . FINDINGS: Large left pleural effusion is present with complete left lower lobe and partial left uppe r lobe atelectasis. Trachea is midline. No new or progressive right lung field finding. Heart and vas culature are normal. No pneumothorax. No acute bony abnormality seen. No acute aortic findings suspec monisha. IMPRESSION: Large pleural effusion filling most of the left hemithorax. Findings match prior imaging .
[2019-01-10] MEDS: ASPIRIN EC 81 MG TAB PO SCH (08:37)
[2019-01-10] MEDS: TAMSULOSIN 0.4 MG SR CAP PO SCH (08:37)
[2019-01-10] MEDS: POLYETHYL GLY 3350 17 GM/DOSE PO SCH ×2 (08:37→20:43)
[2019-01-10] MEDS: PANTOPRAZOLE 40MG TABLET PO SCH ×2 (08:38→20:44)
[2019-01-10] MEDS: CARVEDILOL 6.25 MG TAB PO SCH (08:44)
[2019-01-10] MEDS: SENOSIDES 8.6 MG TAB PO SCH ×2 (08:44→20:44)
[2019-01-10] MEDS ORDERED: LIDOCAINE 1% 20 ML MDV IV ONE (09:13)
[2019-01-10] MEDS ORDERED: LORAZEPAM 0.5 MG TABLET PO ONE (10:54)
--- NOTE | 2019-01-10 11:07 | P.PN ---
Subjective Date of Service: 01/10/19 Chief Complaint: Pleural effusion Patient has a significant pleural effusion on the left side he refuses any interventional measures including a chest tube was to be discharged back to the longterm and kept comfortable he is very agitated alert oriented responsive cooperative Review of Systems General: Weakness Respiratory: Cough, Shortness of Breath Physical Examination - Vital Signs Temperature: 98.0 F Blood Pressure: 183/92 Pulse: 104 Respirations: 22 Pulse Ox (%): 93 - Physical Exam General: Moderate distress Neck: Supple Respiratory: Diminished (Markedly diminished air entry with bronchial breathing on the left side) Cardiovascular: No edema, Normal pulses - Studies Microbiology Data (last 24 hrs): 01/07/19 14:50 Catheterized Urine Ebony Count - Final 01/07/19 14:50 Catheterized Urine - Final No growth. Assessment & Plan - Problems (Diagnosis) (1) Pleural effusion Current Visit: Yes Status: Acute Plan: Patient has a significant pleural effusion on the left side he is currently refused the chest tube wants to go back to the longterm for the for comfort care patient is hypernatremic started him on D5 water patient is anemic BUN elevated discussed with Dr. Hong.
--- NOTE | 2019-01-10 11:27 | RAD REPORT ---
EXAM DESCRIPTION: US - Chest - 01/10/2019 11:12 am CLINICAL HISTORY: Pleural effusion COMPARISON: January 09, 2019 CT chest FINDINGS: Small to moderate left pleural effusion is present with passive left atelectasis. IMPRESSION: Small to moderate left pleural effusion with passive left atelectasis
[2019-01-10] MEDS: D5W 1,000 ML IV SCH (12:41)
--- NOTE | 2019-01-10 13:31 | P.PN ---
Subjective Date of Service: 01/10/19 Chief Complaint: Pleural effusion Subjective: No new changes pt admitted with hypoxia and SOB, had JERRY Found to have large Lt pleural effusion today refusing thoracentecis Jerry resolved NA 149, agree with D5w will start IV iron will increase Coreg Physical Examination - Vital Signs Temperature: 98.0 F Blood Pressure: 183/92 Pulse: 104 Respirations: 22 Pulse Ox (%): 93 - Physical Exam General: Alert, Oriented x3, Moderate distress HEENT: Atraumatic Neck: Supple, Without JVD or thyroid abnormality Respiratory: Diminished Cardiovascular: No edema, Regular rate/rhythm, Normal S1 S2, No gallops, No rubs Gastrointestinal: Hypoactive, No ascites, No tenderness Assessment And Plan - Current Problems (Diagnosis) (1) JERRY (acute kidney injury) Status: Acute (2) Hypernatremia Status: Acute (3) Pleural effusion Status: Acute - Plan Acute kidney injury, resolved due to prerenal azotemia US no, [place] renall dose meds F/U serology W/U hypernatremia \saline induced and decrease po fluid intake PNA cont Abx Lt pleural effusion refused thoracentecis Anemia EMILEE : will start IV iron F/u SPEP /UPEP HTN will increase Coreg
--- NOTE | 2019-01-10 15:02 | PN ---
Date of Progress Note: 01/10/2019 Subjective: Patient seen and examined. Chart reviewed and case discussed with RN, Dr. Elias, and Dr. Ariza. Patient initially wanting to leave AMA, was convinced. Otherwise, patient refused tub e this morning. Medications: List reviewed. Physical Examination: Vital Signs: Temperature 98, heart rate 104, blood pressure 183/92, respirations 32, O2 93% on 4 L v ia nasal cannula. General: Awake, alert oriented x3. Agitated, ill-appearing elderly male. CV: S1, S2. Respiratory: Diminished breath sounds. Not moving air on the left. Gastrointestinal: Abdomen is soft, nontender, nondistended. Positive bowel sounds. Extremities: No clubbing, cyanosis, or edema. Neurologic: Nonfocal. Laboratory Data: Sodium 149, potassium 4, chloride 112, CO2 32, BUN 55, creatinine 1.25, glucose 161 , uric acid 8.4, calcium 8.5, phosphorus 2.4. Iron is 12, TIBC 232, transferrin 166, ferritin 151. Troponin 0.16. Albumin 2.2. Hemoglobin is 8.2, hematocrit 25.3, platelets 402, WBC 11.3. Hepatitis panel pending. Immunology panel pending. Blood cultures, no growth to date. Urine culture, no hay wth. Sputum culture pending. Chest ultrasound shows small to moderate left pleural effusion with pa ssive left atelectasis. Chest x-ray personally reviewed, shows large pleural effusions filling most of the left hemithorax. Findings match prior imaging. Assessment And Plan: A 73-year-old male with: 1.Acute respiratory failure with hypoxia, hypercapnia, improving, now extubated, but still on 4 L vi a nasal cannula secondary to pneumonia and left-sided atelectasis. 2.Acute metabolic encephalopathy, resolved. Head CT is negative. Patient is alert and oriented x3. 3.Web-OC-gnidssyuz myocardial infarction. Continue chest pain guidelines. Lovenox on hold due to c hest tube placement, initially refused, will re-attempt by Surgery. Echocardiogram shows global hypo kinesis, EF 35%. Patient will need outpatient cardiac workup. 4.Hypertensive heart disease. 5.Left lobe pleural effusion with whiteout. Patient will require chest tube placement, initially re fused. Discussed with Dr. Ariza. Re-attempt chest tube placement if patient agrees. 6.Acute kidney injury, improved with IV fluids. 7.Diabetes mellitus type 2, insulin requiring with hyperglycemia. We will start on Lantus, not well controlled. 8.Hypertension. Blood pressure is improved. We will resume home medications as appropriate. 9.Gout, stable. 10.Iron deficiency anemia. We will continue to monitor H and H. patient will benefit from iron sup plementation. 11.Mixed hyperlipidemia. Continue statin. 12.History of coronary artery disease, sycuan artery and sycuan heart with angina. Continue home me dications. 13.Generalized osteoarthritis. Stable. 14.Hypothyroidism. We will continue levothyroxine. 15.Personality disorder, not otherwise specified. 16.Deep venous thrombosis prophylaxis. No chemical anticoagulation due to chest tube placement anti cipated today. Plan: Pending chest tube placement. If patient disagrees and wants to go back to nursing facility, would recommend caring comfort measures and palliative care as patient's condition is unlikely to imp rove without a chest tube. /MISTY Voice ID: [id number] Report ID: [id number]
--- NOTE | 2019-01-10 15:06 | P.CNS ---
Date of Consult: 01/10/19 PC: I was asked to evaluate this 73-year-old man in regards to a left-sided pleural effusion. HPC: Patient apparently it was in the ICU reasoning with a pneumonia. Follow up chest x-ray reveals the patient has a white out of his left long. The patient had been gentle for a left thoracostomy catheter tube placement yesterday. Apparently he refused. Now is reconsidering. PMH: Previous medical issues SOC: Allergic to doxycycline and Zofran SYS REVIEW: Patient has chronic shortness of breath. He is very distress at the moment. Finding hard to adjust to postural changes. O/E awake alert stable vital patient is tachypneic, has since stopped term catch his breath to speak HEENT: Not jaundice Chest: Diminished air entry left side ABD: Soft LOCO: Has a central line in his groin DATA: Chest x-ray demonstrates left-sided pleural effusion IMPRESSION: Left-sided pleural effusion PLAN: After a brief discussion patient has consented to the left-sided chest tube. The risks of this procedure were explained. The possibility of bleeding, infection, need for further surgeries and procedures was described. He understands and wants us to proceed.
--- NOTE | 2019-01-10 15:10 | P.OP ---
Preoperative diagnosis: Left side pleural effusion Postoperative diagnosis: The same Primary procedure: Left side thoracostomy tube placement Anesthesia: Local Estimated blood loss: Less than 10 cc Operative Technique: After explained the procedure the patient in the room at the patient's bedside, and observing a time-out, universal precautions were used to prep the area of the left chest and draped in the usual manner. It was necessary due the patient' s sitting up as needed should not tolerate the supine position. After having made a skin marking at about the 6th intercostal space, there was injected with 1% lidocaine. Skin incision was made. The final needle was now used to aspirate fluid from the thoracic cavity. Having ensured we were intra thoracic, the guidewire was now passed down through were finer needle. Using a modified Seldinger technique the catheter was now placed after having passed a 18 dilator over the catheter easily slid through the skin into good position. The catheter was now sutured in place. It was connected the wall VAC. It was draining slightly blood-tinged fluid. At the end of the procedure the patient is in a stable condition, feeling much better and breathing easier. A sterile dressing had been applied, the catheter is attached to the Pleur-Evac. Complications: None Drain(s): Other (Left thoracostomy catheter (18 Spanish)) Condition: Good
[2019-01-10] MEDS: SOD FERRIC GLUC COMPLX/SUCROSE 125 MG in NA CHLORIDE 0.9% 100 ML IV SCH (15:45)
--- NOTE | 2019-01-10 15:47 | P.PN ---
Date of Service: 01/10/19 Postprocedural film shows chest tube in the left shayy thorax. There is a diminution in volume of fluid. This is a smaller catheter L taken wall for to drain completely. Expect someone improve resolution by a.m.. Continue current therapy.
--- NOTE | 2019-01-10 16:21 | RAD REPORT ---
EXAM DESCRIPTION: [place] Single View01/10/2019 3:40 pm CLINICAL HISTORY: Chest tube placement COMPARISON: January 10, 2019 FINDINGS: Left chest tube has been placed with its tip in the mid to upper left hemithorax. A pneumo thorax is not seen. There has been evacuation of some of the pleural effusion. Mid and lower left hemithorax is hazy prob ably mostly atelectasis
[2019-01-10] MEDS: HALOPERIDOL LACT 5 MG/ML INJ IV PRN (16:33)
[2019-01-10] MEDS: CARVEDILOL 12.5 MG TAB PO SCH (17:00)
[2019-01-10] MEDS: IPRATROPIUM BROM 0.5MG/2.5ML IH PRN (17:13)
[2019-01-10 18:34] LABS: Blood O2 Saturation 91.4 % (92-98.5)
[2019-01-10] MEDS: ACETAMINOPHEN 500 MG TAB PO PRN (20:44)
[2019-01-10] MEDS: LORAZEPAM 0.5 MG TABLET PO PRN (20:44)
[2019-01-10] MEDS ORDERED: INSULIN GLARGINE 100 UNITS/ML SQ SCH (21:00)
[2019-01-10 22:56] LABS: Rheumatoid Factor NEG (NEG)
[2019-01-11] MEDS: PIPER/TAZO/NS 2.25gm 2.25 GM/50 ML BAG IVPB SCH ×3 (00:35→16:00)
[2019-01-11] MEDS: LEVALBUTEROL 1.25 MG/3 ML NEB NEB SCH ×3 (01:25→14:00)
[2019-01-11] MEDS: HALOPERIDOL LACT 5 MG/ML INJ IV PRN ×3 (01:58→16:08)
[2019-01-11] MEDS: FENTANYL CITR 100 MCG/2 ML IV PRN ×2 (03:20→11:46)
[2019-01-11] MEDS: LEVOTHYROXINE SOD 0.075 MG TAB PO SCH (05:08)
[2019-01-11] MEDS: CARVEDILOL 12.5 MG TAB PO SCH ×2 (05:09→16:55)
[2019-01-11] MEDS: ACETAMINOPHEN 500 MG TAB PO PRN (05:14)
[2019-01-11 05:18] VITALS: TEMP 98
[2019-01-11 05:31] LABS: Albumin 2.3 g/dL (3.4-5.0); Phosphorus 2.3 mg/dL (2.5-4.9); Potassium 4.5 mmol/L (3.5-5.1)
[2019-01-11] MEDS: D5W 1,000 ML IV SCH (06:07)
[2019-01-11] MEDS ORDERED: FUROSEMIDE 40 MG/4 ML VIAL IV ONE (07:00)
[2019-01-11 08:42] LABS: Arterial Blood Carboxyhemoglob 1.6 % (0-1.5); Blood Gas Oxyhemoglobin 86.4 % (94-97); Blood O2 Saturation 88.2 % (92-98.5)
[2019-01-11 09:09] VITALS: O2SAT 100
[2019-01-11] MEDS: POLYETHYL GLY 3350 17 GM/DOSE PO SCH (09:09)
[2019-01-11] MEDS: PANTOPRAZOLE 40MG TABLET PO SCH (09:09)
[2019-01-11] MEDS: ASPIRIN EC 81 MG TAB PO SCH (09:09)
[2019-01-11] MEDS: TAMSULOSIN 0.4 MG SR CAP PO SCH (09:09)
[2019-01-11] MEDS: SENOSIDES 8.6 MG TAB PO SCH (09:10)
[2019-01-11] MEDS: CHOLESTYRAMINE/ASP 4 GM/PKT PO SCH ×3 (09:10→16:33)
[2019-01-11] MEDS: INSULIN -REGULAR HUMAN 50 UNIT/0.5 ML ML SQ SCH ×3 (09:22→16:56)
[2019-01-11] MEDS: SOD FERRIC GLUC COMPLX/SUCROSE 125 MG in NA CHLORIDE 0.9% 100 ML IV SCH (10:26)
--- NOTE | 2019-01-11 11:04 | RAD REPORT ---
EXAM DESCRIPTION: RAD - Chest Single View - 01/11/2019 6:56 am CLINICAL HISTORY: Atelectasis Chest pain. COMPARISON: Chest Single View dated 01/10/2019; Chest Single View dated 01/10/2019; Chest Single View dated 01/09/2019; Chest Single View dated 01/07/2019 FINDINGS: Portable technique limits examination quality. Mild to moderate pulmonary edema is seen. The heart is significantly enlarged with dual lead pacer de vice present. Left-sided chest tube is noted, the tip appearing unchanged. IMPRESSION: Mild to moderate CHF versus volume overload pattern.
--- NOTE | 2019-01-11 11:24 | PN ---
Subjective: Patient seen and examined. Chart reviewed and case discussed with RN. The patient continues to be noncompliant, wanting to pull off his oxygen mask, his non-rebreather mask, and now his BiPAP mask. The patient had respiratory distress this morning. ABG worsening, will be transferred to ICU. The patient did have sitter overnight due to his noncompliance and pulling his oxygen off. No family members at the bedside. Medications: List reviewed. Physical Examination: Vital Signs: Temperature 98, heart rate 99, blood pressure 179/94, respirations 34, O2 at 95% on BiPAP, 100% FiO2. General: Awake, alert, oriented x3, in moderate respiratory distress, ill- appearing male. CV: S1, S2. No murmurs present. Pulses present. Respiratory: Patient is tachypneic with use of accessory muscles. Diminished breath sounds, left worse than right. Some crackles heard. Gastrointestinal: Abdomen is soft, nontender, nondistended. Positive bowel sounds. Extremities: No clubbing, cyanosis, or edema. Neurologic: Nonfocal. Laboratory Data: Sodium 146, potassium 4.5, chloride 109, CO2 of 30, BUN 36, creatinine 0.96, glucose 191, calcium 8.9, phosphorus 2.3. Blood cultures, no growth to date. ABG; pH 7.37, bicarb 28.7. Chest x-ray personally reviewed, no official report. His left hemithorax is still hazy. Some atelectasis and pleural effusion. Chest tube in place. Assessment And Plan: A 73-year-old male with: 1. Acute respiratory failure with hypoxia, hypercapnia, worsening. Patient now on BiPAP. ABG shows hypercapnia. The patient is noncompliant with his oxygen, continuously trying to take his mask off. 2. Acute metabolic encephalopathy, resolved. The patient is alert, oriented x3. 3. NSTEMI. We will continue chest pain guidelines. Resume Lovenox. 4. Hypertensive heart disease. 5. Left lower lobe pleural effusion, status post chest tube, cytology pending. 6. Acute kidney injury, improved with IV fluids. We will hold IV fluids for now due to effusion. 7. Diabetes mellitus type 2, insulin requiring with hyperglycemia. We will continue on Lantus and sliding scale insulin, not well controlled. 8. Essential hypertension, stable. Continue medications. 9. Gout, stable. 10. Iron-deficiency anemia. We will continue to monitor H and H, transfuse as needed. 11. Mixed hyperlipidemia. Continue statin. 12. History of coronary artery disease, iliamna artery and iliamna heart without angina, stable. 13. Generalized osteoarthritis, stable. 14. Hypothyroidism. Continue levothyroxine. 15. Personality disorder, NOS. 16. Deep vein thrombosis prophylaxis. We will restart Lovenox 24 hours postprocedure. Plan: Transfer to ICU for acute respiratory failure. Currently on BiPAP, guarded prognosis. We will update family. /MISTY Voice ID: [id number] Report ID: [id number] YAMIL
--- NOTE | 2019-01-11 14:09 | P.PN ---
Date of Service: 01/11/19 S: The patient apparently episode decision that he wants to make discharged on hospice. He understands his condition, realizes he is going to require further ongoing treatment interventions just to maintain where he is at. He does not want to have anything else done. O: Awake alert comfortable at the moment, talking to his daughter. Demanding that his chest tube be removed. He is oriented and rational. A : Patient wanted to be discharged on hospice care P: Chest tube removed, dressing applied.
--- NOTE | 2019-01-11 14:19 | EKG ---
Test Date: 2019-01-10 Test Time: 07:57:01 Organizational Development Specialist: RUY MEASUREMENT RESULTS: Intervals: Rate: 104 TN: QRSD: 158 QT: 410 QTc: 539 [place]: P: TN: QRS: 118 T: -61 INTERPRETIVE STATEMENTS: Undetermined rhythm Nonspecific intraventricular block Lateral infarct, age undetermined Abnormal ECG Compared to ECG 01/07/2019 14:17:04 Myocardial infarct finding now present Atrial fibrillation no longer present Right-axis deviation no longer present Left bundle-branch block no longer present Electronically Signed On 01-11-19 14:13:55 CDT by Doug Vines
[2019-01-11 21:07] VITALS: BP 183/92
--- NOTE | 2019-01-12 01:40 | PN ---
Date of Progress Note: 01/11/2019 Chief Complaint: Acute kidney injury and history of left pleural effusion. The patient refused thoracentesis. Acute kidney injury has improved. Sodium level was up to 149 and patient agreed with IV fluids, switched to D5W to correct hypernatremia. Review of Systems: Denies fever, chills. Physical Examination: Lungs: Clear to auscultation bilaterally. Heart: S1, S2. Abdomen: Soft. Benign. Extremities: No edema. Laboratory Data: Hemoglobin 8.2, WBC 11.3, platelet count is 402,000. Chemistry showed sodium 146, potassium 4.5, chloride 109, CO2 of 30, BUN 36, creatinine 0.96, glucose 191, phosphorus 2.3. Impression And Plan: 1. Acute kidney injury, with prerenal azotemia. The patient has nonoliguric urine output. 2. Hypernatremia, treated with mild hydration with D5W. 3. The patient developed acute respiratory distress and was started on BiPAP and transferred to Intensive Care Unit. Surgical consultation was obtained. The patient remains on BiPAP and previously had nonrebreather mask. He developed acute respiratory failure with hypoxemia, hypercarbia. ABG showed hypercapnia. 4. He has acute metabolic encephalopathy and primary team is ordering a workup for encephalopathy. 5. The patient has history of non-ST elevation myocardial infarction and was resumed on Lovenox. 6. The patient has hypertensive heart and kidney disease. Acute kidney injury improved with IV fluids. IV fluids on hold due to pleural effusion. 7. Diabetes mellitus. Continue insulin to control hyperglycemia. 8. Gout, stable. I spent total 36 min including 25 min to coordinate care plan. SANTI/MISTY Voice ID: [id number] Report ID: [id number] MTDD
--- NOTE | 2019-01-13 23:56 | DS ---
Date of Discharge: 01/11/2019 Consultants: Dr. Elias, Pulmonology. Dr. Hollis, Dr. Melgar, and Dr. Parikh with Nephrology, Dr. Vines with Cardiology, and Dr. Ariza with General Surgery. Admitting Diagnoses: 1. Acute respiratory failure with hypoxia and hypercapnia. 2. Acute metabolic encephalopathy. 3. Non ST-segment elevation myocardial infarction. 4. New onset atrial fibrillation. 5. Acute kidney injury. 6. Diabetes mellitus type 2, ezp-tblletc-ipmrxmlaq with hypoglycemia. 7. Hypotension. 8. History of gout. 9. Mixed hyperlipidemia. 10. History of coronary artery disease status post history of myocardial infarction, venetie artery and venetie heart without angina. 11. Generalized osteoarthritis. 12. Hypothyroidism. 13. Pericardial effusion. Discharge Diagnoses: 1. Acute respiratory failure with hypoxia and hypercapnia. Patient extubated , however, now requiring BiPAP. 2. Acute metabolic encephalopathy, resolved. 3. Sgh-MH-vyirizxnd myocardial infarction. 4. Hypertensive heart disease. 5. Left lower lobe pleural effusion status post chest tube placement. 6. Acute kidney injury, improving. 7. Diabetes mellitus type 2, insulin requiring now with hyperglycemia. 8. Essential hypertension. 9. Gout. 10. Iron deficiency anemia. 11. Mixed hyperlipidemia, on statin. 12. History of coronary artery disease, venetie artery and venetie heart without angina, stable. 13. Generalized osteoarthritis, stable. 14. Hypothyroidism. 15. Personality disorder, not otherwise specified. Please see addendum for Hospital Course /MODWilton Voice ID: [id number] Report ID: [id number] YAMIL
--- NOTE | 2019-01-13 23:59 | DS ---
Date of Discharge: 01/11/2019 Addendum: Procedures: By Dr. Ariza, 01/10/2019, chest tube placement on the left, status post left-sided ple ural effusion, removal on the . Hospital Course: Patient is a 73-year-old male from nursing facility who comes in with altered menta l status, pneumonia. Patient had to be intubated. He was hypoxic, hypercapnic, pH was 7.28, pCO2 wa s 73. CT scan showed left lower lobe opacity and had moderate pericardial effusion. Patient also frost d elevated troponin levels. He was found to have NSTEMI, started on chest pain guidelines with full- dose Lovenox. Cardiology was consulted. Echocardiogram was done, which did not show any pericardial effusion. Pulmonology was also consulted for ventilatory management. Patient was subsequently extu bated. His mental status improved. Patient was noncompliant. He was constantly pulling off his O2 and BiPAP. Patient's kidney function was also elevated. He was given IV fluids, had some improvemen t. Initially, patient was very hypotensive and his blood pressure medications were held as blood pre ssure improved. Subsequently, kidney function normalized. Patient continued to have elevated blood sugar levels. Initially, when he came in, blood sugar levels were low. His cultures did not show an y growth. Patient's repeat x-ray did show a significant pleural effusion and atelectasis. Therefore , patient required chest tube placement. Initially, he declined, however, subsequently after Surgery consultation, patient was agreeable to chest tube placement. Dr. Ariza placed a tube in and the p atient had significant relief. Patient was transferred to the ICU due to worsening respiratory sympt oms. He was do not resuscitate, kept asking to take the BiPAP off and wanting to go home with a ches t tube. Patient was counseled. He understood that he is in acute respiratory distress, cannot leave the hospital at this time. He did not wish to leave against medical advice. However, after further discussion, patient wished to be DNR, did not wish to be intubated and shows palliative care and hos pice care. Family was also at the bedside. Patient was then referred for hospice and was transferre d to nursing facility with hospice. Chest tube was removed by Dr. Ariza. Patient understood that his condition will deteriorate rapidly without a chest tube. His respiratory function can decline an d he will likely succumb to his illness. He understood. He is alert, oriented x3, did not wish to h arm himself, however, he did not want invasive measures such as this chest tube and wished for comfor t. Previously, patient had been in the hospital for approximately 30 days at a different facility. For physical exam findings, please see progress note dictated on the day of discharge. Total time sp ent discharging the patient was 41 minutes. DANNY Voice ID: [id number] Report ID: [id number]
[2019-01-14 18:50] LABS: Hepatitis C Virus RNA (PCR)log <1.18 log IU/mL
[2019-01-16 21:08] LABS: Vitamin D 1,25-Dihydroxy Total 19 pg/mL (18-72); Vitamin D,1,25-OH2, D2 <8 pg/mL
[2019-01-17 12:40] LABS: HBsAG Nonreactive (Nonreactive)
[2019-01-21 21:58] LABS: Albumin, (SPE) 2.4 g/dL (3.8-4.8); Alpha-1-Globulins 0.4 g/dL (0.2-0.3); Alpha-2-Globulins 0.9 g/dL (0.5-0.9); Gamma Globulins 0.8 g/dL (0.8-1.7); INTERPRETATION REPORT
== END 2019-01-11 18:00 | disposition hospice, inpatient (51) | DRG 208 ==
LOC: ER 13:58 → ERHOLD 17:13 → 3RD-ICU 22:10 → 2ND 01-08 13:15 → 3RD-ICU 01-11 09:45
PROVIDERS: ADMIT Family Medicine; ATTEND Family Medicine
PROC: 5A1935Z Respiratory Ventilation, Less than 24 Consecutive Hours (ICD-10-PCS; 2019-01-07)
PROC: 0BH17EZ Insertion of Endotracheal Airway into Trachea, Via Natural or Artificial Opening (ICD-10-PCS; 2019-01-07)
PROC: 06HY33Z Insertion of Infusion Device into Lower Vein, Percutaneous Approach (ICD-10-PCS; 2019-01-07)
PROC: 5A09357 Assistance with Respiratory Ventilation, Less than 24 Consecutive Hours, Continuous Positive Airway Pressure (ICD-10-PCS; 2019-01-09)
PROC: 0W9B30Z Drainage of Left Pleural Cavity with Drainage Device, Percutaneous Approach (ICD-10-PCS; principal; 2019-01-10)
DX: J18.9 Pneumonia, unspecified organism (principal); J96.02 Acute respiratory failure with hypercapnia; I21.4 Non-ST elevation (NSTEMI) myocardial infarction; G93.41 Metabolic encephalopathy; J96.01 Acute respiratory failure with hypoxia; J91.8 Pleural effusion in other conditions classified elsewhere; N17.9 Acute kidney failure, unspecified; E87.0 Hyperosmolality and hypernatremia; M10.9 Gout, unspecified; D50.9 Iron deficiency anemia, unspecified; E78.2 Mixed hyperlipidemia; I25.10 Atherosclerotic heart disease of native coronary artery without angina pectoris; E03.9 Hypothyroidism, unspecified; F60.9 Personality disorder, unspecified; R79.89 Other specified abnormal findings of blood chemistry; I10 Essential (primary) hypertension; I11.9 Hypertensive heart disease without heart failure; E11.65 Type 2 diabetes mellitus with hyperglycemia; M15.9 Polyosteoarthritis, unspecified; I95.9 Hypotension, unspecified
CPT/HCPCS: 31500; 36415; 51702; 70450; 71045; 71250; 74176; 76604; 76770; 80048; 80061; 80069; 80076; 80307; 81003; 81015; 82550; 82570; 82607; 82652; 82728; 82746; 82805; 82962; 83036; 83520; 83540; 83605; 83690; 84145; 84156; 84165; 84439; 84443; 84466; 84484; 84550; 85014; 85018; 85025; 85044; 85610; 85730; 86021; 86038; 86160; 86317; 86430; 86706; 87015; 87040; 87070; 87086; 87088; 87116; 87205; 87206; 87340; 87522; 92610; 93005; 93306; 94002; 94660; 94760; 96361; 96365; 96366; 96372; 96375; 97110; 97116; 97161; 99291; 99292; J0330; J0456; J0696; J1630; J1650; J1940; J2543; J2704; J2916; J3010; J7030